=== PATIENT | female | born 2000 | race African-American/Black ===

== ENCOUNTER 2021-03-20 01:23 | Emergency (ER) | payer OTHER ==
--- NOTE | 2021-03-20 01:35 | ED Physician Documentation ---
PD HPI URI - Stated complaint Stated Complaint: FEMALE ,SWOLLEN NECK GLANDS - Chief complaint Chief Complaint: General - History obtained from History obtained from: Patient PD PAST MEDICAL HISTORY - Present Medications Home Medications: Ambulatory Orders Medication Instructions Recorded Confirmed Fluconazole [Diflucan] 150 mg PO Q3D 6 Days #2 tablet 03/20/21 Ibuprofen [Motrin] 600 mg PO TID PRN #20 tab 03/20/21 cephALEXin [Keflex] 500 mg PO TID 6 Days #18 cap 03/20/21 - Allergies Allergies/Adverse Reactions: Allergies Allergy/AdvReac Type Severity Reaction Status Date / Time No Known Drug Allergies Allergy Verified 03/20/21 01:29 PD ED PE NORMAL - Vitals Vital signs reviewed: Yes - General General: Alert and oriented X 3, No acute distress, Well developed/nourished - HEENT HEENT: Ears normal. No: Pharynx benign (left tonsils with some enlargement, faint exudate in crypts, with some peritonsillar redness/mild edema. No apparent abscess appearance. ) - Neck Neck: Supple, no meningeal sign, Other (left anterior cervical with enlarged lymph node that is tender. ) - Cardiac Cardiac: RRR - Respiratory Respiratory: Clear bilaterally - Female Female : Neck Skewer present, Other (redness of inner labial. Vault with thicker white discharge. No endocervical discharge. ) - Derm Derm: Normal color, Warm and dry, No rash Results - Vitals Vitals: Oxygen O2 Source Room air - Labs Labs: Microbiology 03/20/21 01:32 Group A Strep Throat Culture - Preliminary Throat CULTURE IN PROGRESS. RESULTS TO FOLLOW. Laboratory Tests 03/20/21 03/20/21 03/20/21 01:32 02:03 02:03 C. glabrata (PCR) NEGATIVE C. krusei (PCR) NEGATIVE Maribel species DNA POSITIVE A Chlam trachomat DNA PCR NEGATIVE N.gonorrhoeae DNA (PCR) NEGATIVE Group A Strep Rapid Negative T. vaginalis (PCR) NEGATIVE NEGATIVE Bact Vaginosis (PCR) NEGATIVE PD MEDICAL DECISION MAKING - ED course Complexity details: reviewed results, considered differential (vaginal exam c/w yeast vaginitis. Obtained PCR tests as well. Her tonsils seem some enlarged on left with some redness/mucosal swelling (but not appearing peritonsillar abscess extent) with neck adenopathy. Seems likely bacterial. ), d/w patient Departure - Departure Disposition: 01 Home, Self Care Clinical Impression: Yeast vaginitis Acute pharyngitis Qualifiers: Pharyngitis/tonsillitis etiology: unspecified etiology Qualified Code(s): J02.9 - Acute pharyngitis, unspecified Condition: Stable Record reviewed to determine appropriate education?: Yes Instructions: ED Strep Pharyngitis Poss, ED Vaginal Infec Fungal Maribel Follow-Up: KATHARINE VO ARNP [Primary Care Provider] - Prescriptions: Fluconazole [Diflucan] 150 mg PO Q3D 6 Days #2 tablet cephALEXin [Keflex] 500 mg PO TID 6 Days #18 cap Ibuprofen [Motrin] 600 mg PO TID PRN #20 tab PRN Reason: Pain Comments: Your rapid strep test is negative but your symptoms are certainly suspicious for strep pharyngitis. We can start treating empirically pending the throat culture which will result in a couple of days. If the culture were to come back negative, then the antibiotics could be stopped with presumption of a viral illness instead. The vaginal exam seems most consistent with yeast vaginitis and we can treat with Diflucan antifungal tablet the dose here today and then every 3 days for 2 more doses. That should allow for clearing of that. The vaginal PCR tests will result in a day or so and tell us if there is any bacterial vaginitis or S TI's. If those are positive then we would need to add antibiotics for those and we would give you a call. I would anticipate improvement over the next few days. Stay well-hydrated. Ibuprofen 3 times a day with food for pain and inflammation as needed. Add Tylenol if needed for further pain. Recheck if not improving well over the next several days. I transmitted your prescriptions to [facility] in [place]. Discharge Date/Time: 03/20/21 02:25
[2021-03-20] MEDS ORDERED: cephALEXin 250 MG CAPSULE PO STA (01:49)
[2021-03-20] MEDS ORDERED: ACETAMINOPHEN 325 MG TABLET PO STA (01:49)
[2021-03-20] MEDS ORDERED: IBUPROFEN 600 MG TABLET PO STA (01:49)
[2021-03-20 01:52] LABS: RAPID STREP SCREEN Negative (Negative)
[2021-03-20] MEDS ORDERED: FLUCONAZOLE 100 MG TABLET PO STA (02:08)
[2021-03-20 02:26] VITALS: BP 119/75
[2021-03-20 03:51] LABS: BACTERIAL VAGINOSIS DNA NEGATIVE (NEGATIVE); CANDIDA GLABRATA DNA NEGATIVE (NEGATIVE); CANDIDA GROUP DNA POSITIVE (NEGATIVE); CANDIDA KRUSEI DNA NEGATIVE (NEGATIVE); TRICHOMONAS VAGINALIS DNA NEGATIVE (NEGATIVE)
[2021-03-20 23:50] LABS: CHLAMYDIA TRACHOMATIS DNA NEGATIVE (NEGATIVE); NEISSERIA GONORRHOEAE DNA NEGATIVE (NEGATIVE); TRICHOMONAS VAGINALIS DNA NEGATIVE (NEGATIVE)
== END 2021-03-20 02:25 | disposition home or self-care (01) ==
LOC: ED 01:23
DX: B37.3 Candidiasis of vulva and vagina (principal); J02.9 Acute pharyngitis, unspecified
CPT/HCPCS: 87070; 87430; 87481; 87491; 87591; 87661; 87801; 99283; A9270

== ENCOUNTER 2021-06-19 08:00 | Outpatient (CLI) | payer OTHER ==
[2021-06-19 17:43] LABS: BILIRUBIN,URINE NEGATIVE (NEGATIVE); GLUCOSE, URINE (UA) NEGATIVE (NEGATIVE); KETONES,URINE (UA) NEGATIVE (NEGATIVE); LEUKOCYTE ESTERASE, URINE NEGATIVE (NEGATIVE); NITRITE,URINE NEGATIVE (NEGATIVE); OCCULT BLOOD,URINE NEGATIVE (NEGATIVE); PROTEIN,URINE NEGATIVE (NEGATIVE); UROBILINOGEN,URINE 0.2 (NORMAL) E.U./dL (NORMAL)
[2021-06-19 17:44] LABS: CLARITY,URINE CLEAR (CLEAR)
[2021-06-19 17:56] LABS: BACTERIA,URINE Rare /HPF (None Seen); RBC,URINE 0-5 /HPF (0-5); SQUAMOUS EPITHELIAL CELL,UR RARE Squamous (<= Few); WBC,URINE 0-3 /HPF (0-5)
== END 2021-06-19 23:59 ==
LOC: LAB.N 08:00
PROVIDERS: ATTEND Physician Assistant Medical
DX: U07.1 COVID-19 (principal)
CPT/HCPCS: 81001; 87086; 87275; 87276

== ENCOUNTER 2021-10-15 16:39 | Emergency (ER) | payer OTHER ==
--- OUTSIDE RECORDS SUMMARY | 2021-10-15 16:59 | EXTERNAL MEDICAL SUMMARY RPT | Continuity of Care Document ---
:2000 Author Organization [facility] Address [address] [place] [address] Phone Care Team Providers Name Role Phone PA-C Unavailable Unavailable Allergies No information. Encounters No information. Medications date description facility 20210819 erythromycin All Problems date description facility [id number] Superficial injury of cornea All 20210819 Injury of conjunctiva and corneal abrasi on without foreign All body, right eye, initial encounter 20210819 Corneal abrasion All Results No information. Vital Signs date measurement value source 20210819 weight_standard 183.2 lb 20210819 weight_metric 83.1 kg 20210819 temperature_standard 97.5 F 20210819 temperature_metric 36.39 C 20210819 respiration_rate 12 /min 20210819 height_standard 65 in 20210819 height_metric 165.1 cm 20210819 heart_rate 75 /min 20210819 BP_systolic 113 mm[Hg] 20210819 BP_diastolic 80 mm[Hg] 20210819 BMI 30.60 kg/m2
--- NOTE | 2021-10-15 17:49 | ED Physician Documentation ---
PD HPI ABD PAIN - Stated complaint Stated Complaint: ABD PX - Chief complaint Chief Complaint: Abd Pain - History obtained from History obtained from: Patient (21-year-old woman presents with pelvic pain that is severe x2 days. She thinks it is related to a 1 month old IUD. She denies bleeding or discharge. No urinary complaints.) Review of Systems Constitutional: denies: Fever, Chills Cardiac: denies: Chest pain / pressure Respiratory: denies: Dyspnea, Cough GI: denies: Nausea, Vomiting, Diarrhea PD PAST MEDICAL HISTORY - Past Medical History Past Medical History: No - Past Surgical History Past Surgical History: Yes HEENT: Tonsil/Adenoidectomy - Present Medications Home Medications: Ambulatory Orders Medication Instructions Recorded Confirmed Fluconazole [Diflucan] 150 mg PO Q3D 6 Days #2 tablet 03/20/21 Ibuprofen [Motrin] 600 mg PO TID PRN #20 tab 03/20/21 cephALEXin [Keflex] 500 mg PO TID 6 Days #18 cap 03/20/21 - Allergies Allergies/Adverse Reactions: Allergies Allergy/AdvReac Type Severity Reaction Status Date / Time No Known Drug Allergies Allergy Verified 10/15/21 16:47 - Social History Does the pt smoke?: No Smoking Status: Never smoker Does the pt drink ETOH?: Yes Does the pt have substance abuse?: No - Immunizations Immunizations are current?: Yes PD ED PE NORMAL - Vitals Vital signs reviewed: Yes - General General: Alert and oriented X 3, No acute distress - Abdomen Abdomen: Normal bowel sounds, Soft, Non tender - Female Female : Sign Builder present (Shelby TOMPKINS), Other (Appropriate placement of IUD strings, IUD removed with patient request. No bimanual tenderness.) - Neuro Neuro: Alert and oriented X 3, Normal speech Results - Vitals Vitals: Vital Signs - 24 hr 10/15/21 10/15/21 16:44 16:47 Temperature 36.4 C L 36.5 C Heart Rate 67 67 Respiratory 14 14 Rate Blood Pressure 132/75 H 132/75 H O2 Saturation 100 100 Oxygen O2 Source Room air - Labs Labs: Laboratory Tests 10/15/21 10/15/21 10/15/21 17:46 17:46 18:10 WBC 11.1 H RBC 3.93 L Hgb 11.9 L Hct 35.2 L MCV 89.6 MCH 30.3 MCHC 33.8 RDW 12.9 Plt Count 229 MPV 10.8 Neut # (Auto) 7.5 H Lymph # (Auto) 2.6 [place] # (Auto) 1.0 Eos # (Auto) 0.0 Baso # (Auto) 0.0 Absolute Nucleated RBC 0.00 Nucleated RBC % 0.0 Sodium 139 Potassium 3.6 Chloride 106 Carbon Dioxide 26 Anion Gap 7.0 BUN 12 Creatinine 0.7 Estimated GFR (MDRD) 126 Glucose 88 Calcium 8.9 Total Bilirubin 0.4 AST 22 ALT 20 Alkaline Phosphatase 31 L Total Protein 7.3 Albumin 3.7 Globulin 3.6 Albumin/Globulin Ratio 1.0 Lipase 25 Urine Color YELLOW Urine Clarity HAZY Urine pH 7.0 Ur Specific [place] 1.020 Urine Protein NEGATIVE Urine Glucose (UA) NEGATIVE Urine Ketones NEGATIVE Urine Occult Blood SMALL H Urine Nitrite NEGATIVE Urine Bilirubin NEGATIVE Urine Urobilinogen 0.2 (NORMAL) Ur Leukocyte Esterase NEGATIVE Urine RBC 6-10 H Urine WBC 0-3 Ur Squamous Epith Cells NONE SEEN Urine Bacteria None Seen Ur Microscopic Review INDICATED Urine Culture Comments NOT INDICATED Urine HCG, Qual 10/15/21 18:10 WBC RBC Hgb Hct MCV MCH MCHC RDW Plt Count MPV Neut # (Auto) Lymph # (Auto) [place] # (Auto) Eos # (Auto) Baso # (Auto) Absolute Nucleated RBC Nucleated RBC % Sodium Potassium Chloride Carbon Dioxide Anion Gap BUN Creatinine Estimated GFR (MDRD) Glucose Calcium Total Bilirubin AST ALT Alkaline Phosphatase Total Protein Albumin Globulin Albumin/Globulin Ratio Lipase Urine Color Urine Clarity Urine pH Ur Specific [place] Urine Protein Urine Glucose (UA) Urine Ketones Urine Occult Blood Urine Nitrite Urine Bilirubin Urine Urobilinogen Ur Leukocyte Esterase Urine RBC Urine WBC Ur Squamous Epith Cells Urine Bacteria Ur Microscopic Review Urine Culture Comments Urine HCG, Qual NEGATIVE PD MEDICAL DECISION MAKING - ED course ED course: 21-year-old woman presents with pelvic pain that she feels is related to her IUD. Alternative etiologies were not identified on testing. Per her request the IUD was removed in standard fashion with nurse Cherelle garcia at the bedside and chaperoning and she was pleased. Pelvic ultrasound was unremarkable with normal placement of the IUD. Departure - Departure Disposition: 01 Home, Self Care Clinical Impression: Pelvic pain in female Condition: Good Record reviewed to determine appropriate education?: Yes Instructions: ED Pelvic Pain UKO Comments: Your IUD was removed today, you will need to use alternative forms of control. Follow-up with your primary care or edi consultant, next available appointment. Return for new or worsening symptoms.
[2021-10-15 17:51] LABS: MEAN PLATELET VOLUME 10.8 fL (7.9-10.8); RED CELL DISTRIBUTION WIDTH 12.9 % (12.0-15.0)
[2021-10-15 17:54] LABS: BASOPHILS % (AUTO) 0.2 %; EOSINOPHILS % (AUTO) 0.3 %; HCT - HEMATOCRIT 35.2 % (37.0-47.0); HGB - HEMOGLOBIN 11.9 g/dL (12.0-16.0); LYMPHOCYTES # (AUTO) 2.6 10^3/uL (1.5-3.5); LYMPHOCYTES % (AUTO) 23.1 %; MEAN CORPUSCULAR HEMOGLOBIN 30.3 pg (27.0-31.0); MEAN CORPUSCULAR HGB CONC 33.8 g/dL (32.0-36.0); MEAN CORPUSCULAR VOLUME 89.6 fL (81.0-99.0); MONOCYTES % (AUTO) 8.6 %; NEUTROPHILS # (AUTO) 7.5 10^3/uL (1.5-6.6); NEUTROPHILS % (AUTO) 67.5 %; PLT - PLATELET COUNT 229 10^3/uL (130-450); RED BLOOD COUNT 3.93 10^6/uL (4.20-5.40); WHITE BLOOD COUNT 11.1 x10^3/uL (4.8-10.8)
[2021-10-15 18:03] LABS: ALBUMIN 3.7 g/dL (3.2-5.5); BILIRUBIN,TOTAL 0.4 mg/dL (0.2-1.0); CALCIUM 8.9 mg/dL (8.5-10.3); CREATININE 0.7 mg/dL (0.4-1.0); POTASSIUM 3.6 mmol/L (3.5-5.0); TOTAL PROTEIN 7.3 g/dL (6.7-8.2)
[2021-10-15 18:28] LABS: BILIRUBIN,URINE NEGATIVE (NEGATIVE); CLARITY,URINE HAZY (CLEAR); GLUCOSE, URINE (UA) NEGATIVE (NEGATIVE); KETONES,URINE (UA) NEGATIVE (NEGATIVE); LEUKOCYTE ESTERASE, URINE NEGATIVE (NEGATIVE); NITRITE,URINE NEGATIVE (NEGATIVE); OCCULT BLOOD,URINE SMALL (NEGATIVE); PROTEIN,URINE NEGATIVE (NEGATIVE); UROBILINOGEN,URINE 0.2 (NORMAL) E.U./dL (NORMAL)
[2021-10-15] MEDS: HYDROcod/ACETAM 5/325 MG TABLET PO STA (18:44)
[2021-10-15 18:46] LABS: BACTERIA,URINE None Seen /HPF (None Seen); SQUAMOUS EPITHELIAL CELL,UR NONE SEEN (<= Few); WBC,URINE 0-3 /HPF (0-5)
[2021-10-15 18:48] LABS: HCG UR QUAL NEGATIVE
--- NOTE | 2021-10-15 19:36 | Ultrasound Report ---
PROCEDURE: Pelvic w/Transvag+Doppler Comp INDICATIONS: pelvic pain TECHNIQUE: Real-time scanning was performed of the pelvic organs, with image documentation. Additional endovagi nal scanning was necessary due to incomplete visualization of the adnexal and endometrial structures by transabdominal scanning. Doppler interrogation was performed of the ovaries bilaterally. COMPARISON: None. FINDINGS: No pathologic free abdominal or pelvic fluid. Uterus: Uterus is normal in size at 7.4 x 3.1 x 4.5 cm cm. The endometrium measures 4.2 mm in combi zuleyma thickness. IUD is in good position. Ovaries: Both ovaries have a normal size. Normal appearing arterial and venous waveforms are confirm ed to each ovary.] IMPRESSION: 1. IUD is in good position. 2. No acute abnormality. Reviewed by: Tl Prince on 10/15/2021 7:35 PM PDT Approved by: Tl Prince on 10/15/2021 7:35 PM PDT Station ID: [id number]
[2021-10-15 19:53] VITALS: BP 128/72
== END 2021-10-15 19:51 | disposition home or self-care (01) ==
LOC: ED 16:39
DX: R10.2 Pelvic and perineal pain (principal); Z97.5 Presence of (intrauterine) contraceptive device
CPT/HCPCS: 36415; 76830; 76856; 80053; 81001; 81025; 83690; 85025; 93975; 99282; 99284; A9270; 81003; 87086

== ENCOUNTER 2021-12-21 20:24 | Emergency (ER) | payer OTHER ==
[2021-12-21 20:40] VITALS: BP 123/82
--- NOTE | 2021-12-21 21:35 | ED Physician Documentation ---
PD HPI LOWER EXT INJURY - Stated complaint Stated Complaint: R TOE INJ - Chief complaint Chief Complaint: Ext Problem - Additional information Additional information: Patient is 21-year-old female presenting to the emergency department with right great toe pain. Was doing reverse wall walks at the gym, flipped over backwards and landed on her toe in an awkward fashion. States that initially she was able to ambulate however pain got progressively worse approximately 90 minutes after the incident. Denies previous orthopedic injuries to the same foot. Review of Systems Ten Systems: 10 systems reviewed and negative Constitutional: denies: Fever Cardiac: denies: Chest pain / pressure Respiratory: denies: Dyspnea GI: denies: Abdominal Pain PD PAST MEDICAL HISTORY - Past Surgical History Past Surgical History: Yes HEENT: Tonsil/Adenoidectomy - Present Medications Home Medications: Ambulatory Orders Medication Instructions Recorded Confirmed Fluconazole [Diflucan] 150 mg PO Q3D 6 Days #2 tablet 03/20/21 Ibuprofen [Motrin] 600 mg PO TID PRN #20 tab 03/20/21 cephALEXin [Keflex] 500 mg PO TID 6 Days #18 cap 03/20/21 - Allergies Allergies/Adverse Reactions: Allergies Allergy/AdvReac Type Severity Reaction Status Date / Time No Known Drug Allergies Allergy Verified 12/21/21 20:40 - Social History Does the pt smoke?: No Smoking Status: Never smoker Does the pt drink ETOH?: Yes Does the pt have substance abuse?: No - Immunizations Immunizations are current?: Yes PD ED PE NORMAL - General General: Alert and oriented X 3 - HEENT HEENT: Atraumatic - Respiratory Respiratory: No respiratory distress - Female Female : Deferred - Rectal Rectal: Deferred - Extremities Extremities: Other (There is ecchymosis on the dorsal aspect of the right great toe. Normal sensation distal to site of injury. Normal capillary refill. There is no pain at the navicular bone, base of the fifth metatarsal or at either the lateral or medial malleoli.) Results - Vitals Vitals: Vital Signs - 24 hr 12/21/21 20:36 Temperature 36.5 C Heart Rate 75 Respiratory 14 Rate Blood Pressure 123/82 H O2 Saturation 100 Oxygen O2 Source Room air PD MEDICAL DECISION MAKING - ED course Complexity details: d/w patient ED course: Patient is 21-year-old female presenting to the emergency department with right great toe injury. X-rays negative for acute fracture. Neurovascularly intact. Will discharge with hard soled shoe, crutches. Given Motrin here in the emergency department and instructions for alternating Motrin and Tylenol at home. Encouraged ice packs and elevation as well. Encouraged follow-up with primary care and or return to the emergency department for persistent or worsening symptoms. Departure - Departure Clinical Impression: Toe sprain Instructions: ED Sprain Foot
[2021-12-21] MEDS ORDERED: IBUPROFEN 600 MG TABLET PO STA (21:39)
--- NOTE | 2021-12-21 21:50 | XRAY Report ---
PROCEDURE: Toe(s) RT INDICATIONS: Toe pain, s/p fall TECHNIQUE: AP view of the foot and 2 additional views of the great toe acquired. COMPARISON: 12/14/2021 FINDINGS: Bones: No fractures or dislocations. No suspicious bony lesions. Soft tissues: No suspicious soft tissue densities. IMPRESSION: 1. No fracture or dislocation. Reviewed by: Jorge A Stevens MD on 12/21/2021 9:48 PM PDT Approved by: Jorge A Stevens MD on 12/21/2021 9:48 PM PDT Station ID: [id number]
== END 2021-12-21 22:02 | disposition home or self-care (01) ==
LOC: ED 20:24
DX: S93.501A Unspecified sprain of right great toe, initial encounter (principal); X58.XXXA Exposure to other specified factors, initial encounter
CPT/HCPCS: 73660; 99282; 99283; A9270

== ENCOUNTER 2022-08-16 15:43 | Emergency (ER) | payer OTHER ==
--- NOTE | 2022-08-16 16:12 | ED Physician Documentation ---
PD HPI ABD PAIN - Stated complaint Stated Complaint: ABD PX/V/CONSTIPATED - Chief complaint Chief Complaint: Abd Pain - History obtained from History obtained from: Patient - Additional information Additional information: Otherwise healthy 22-year-old woman developed lower abdominal cramping starting 3 weeks ago. Its been episodic. It started while on her menses, was severe for about half an hour. She went to another ED and had urine testing done but no other testing. Subsequently followed up with her doctor and had urine and blood done which were reportedly unremarkable. She still has intermittent cramping. Its becoming more frequent. It is in the low abdomen radiating across to both sides. She had a menses on July 29 and subsequently also had some bleeding a few days ago. She attributed that to Depo-Provera withdrawal. Last actual activity was 2 weeks ago and she is not too concerned about STDs. She has not had a bowel movement in 5 days. She has had nausea and vomiting for the last 2 days. PD PAST MEDICAL HISTORY - Past Surgical History Past Surgical History: Yes HEENT: Tonsil/Adenoidectomy - Present Medications Home Medications: Ambulatory Orders Medication Instructions Recorded Confirmed Dextroamphetamine/Amphetamine 20 mg PO DAILY 08/16/22 08/16/22 [Adderall 20 mg Tablet] HYDROcod/ACETAM 5/325 [[place] 5/325] 1 - 2 tab PO Q6H PRN #15 tablet 08/16/22 Ondansetron Odt [Zofran] 4 mg TL Q6H PRN #10 tablet 08/16/22 - Allergies Allergies/Adverse Reactions: Allergies Allergy/AdvReac Type Severity Reaction Status Date / Time No Known Drug Allergies Allergy Verified 08/16/22 15:52 - Social History Does the pt smoke?: No Smoking Status: Never smoker Does the pt drink ETOH?: Yes Does the pt have substance abuse?: No - Immunizations Immunizations are current?: Yes PD ED PE NORMAL - Vitals Vital signs reviewed: Yes - General General: Alert and oriented X 3, No acute distress - Cardiac Cardiac: RRR, No murmur - Respiratory Respiratory: No respiratory distress, Clear bilaterally - Abdomen Abdomen: Normal bowel sounds, Soft, Non tender - Female Female : Other (Letitia, tech present and chaperoning, dark blood in the vault, mild bimanual tenderness centrally and to the right adnexa without cervical motion tenderness.) - Neuro Neuro: Alert and oriented X 3, Normal speech Results - Vitals Vitals: Vital Signs - 24 hr 08/16/22 08/16/22 15:47 17:52 Temperature 37.1 C Heart Rate 74 69 Respiratory 16 18 Rate Blood Pressure 123/94 H 109/83 H O2 Saturation 100 100 Oxygen O2 Source Room air - Labs Labs: Laboratory Tests 08/16/22 08/16/22 08/16/22 16:15 16:20 16:20 WBC 8.7 RBC 4.14 L Hgb 12.3 Hct 36.1 L MCV 87.2 MCH 29.7 MCHC 34.1 RDW 13.0 Plt Count 264 MPV 10.5 Neut # (Auto) 5.4 Lymph # (Auto) 2.5 [place] # (Auto) 0.8 Eos # (Auto) 0.0 Baso # (Auto) 0.0 Absolute Nucleated RBC 0.00 Nucleated RBC % 0.0 Sodium 134 L Potassium 3.5 Chloride 102 Carbon Dioxide 23 Anion Gap 9.0 BUN 10 Creatinine 0.7 Estimated GFR (MDRD) 125 Glucose 109 H Calcium 9.2 Total Bilirubin 0.5 AST 24 ALT 15 Alkaline Phosphatase 38 L Total Protein 7.9 Albumin 3.8 Globulin 4.1 Albumin/Globulin Ratio 0.9 L Lipase 28 Urine Color YELLOW Urine Clarity CLEAR Urine pH 6.0 Ur Specific [place] 1.020 Urine Protein NEGATIVE Urine Glucose (UA) NEGATIVE Urine Ketones NEGATIVE Urine Occult Blood SMALL H Urine Nitrite NEGATIVE Urine Bilirubin NEGATIVE Urine Urobilinogen 0.2 (NORMAL) Ur Leukocyte Esterase NEGATIVE Urine RBC 0-5 Urine WBC 0-3 Ur Squamous Epith Cells NONE SEEN Urine Bacteria None Seen Ur Microscopic Review INDICATED Urine Culture Comments NOT INDICATED Urine HCG, Qual NEGATIVE PD Medical Decision Making - ED course ED course: 22-year-old woman has been dealing with pelvic cramps and odd vaginal bleeding for the last few weeks. Stopped Depo-Provera about 5 months ago and that might be related but she has been on a control patch in the interim stopping about a week ago. CT of the abdomen pelvis was negative. CBC, CMP, urinalysis, and urine test all without pertinent positive findings. Feeling better after Toradol. Pelvic exam done With some central bimanual and right adnexal tenderness. Offered PID treatment but her exam was fairly benign for that and she preferred to watch and wait to see what her STD test show. Departure - Departure Disposition: Home, Self Care Clinical Impression: Abdominal pain Qualifiers: Abdominal location: lower abdomen, unspecified Qualified Code(s): R10.30 - Lower abdominal pain, unspecified Condition: Good Record reviewed to determine appropriate education?: Yes Instructions: ED Abdominal Pain Female Non-Specific Abdominal Pain Prescriptions: HYDROcod/ACETAM 5/325 [[place] 5/325] 1 - 2 tab PO Q6H PRN #15 tablet PRN Reason: Pain Ondansetron Odt [Zofran] 4 mg TL Q6H PRN #10 tablet PRN Reason: Nausea / Vomiting Comments: Cause of your abdominal and pelvic pain is not quite clear, may be related to stoppage of the Depo-Provera. STD tests are pending. I sent [facility] medication [facility] to [facility] in [place] for you that should help with the pain and cramps. Return for new or worsening symptoms and follow-up with your doctor next week, consideration for gynecology referral. The local civilian office is on this form but you probably will need a referral. I am prescribing a short course of narcotic pain medication for you. These are potentially dangerous and addictive medications that should be used carefully. These medications may constipate you. Take an [id number] stool softener (docusate) twice daily with plenty of water while taking these medications. If you go 24 hours without a bowel movement, take [id number] miralax, per package instructions. Do not drink or drive while taking these medications. If you received narcotic or sedating medications while in the emergency department, do not drive for 24 hours. Store this medication in a safe, secure place and out of reach of children. It is a violation of federal law to give or sell this medication to another person or to use in a manner other than prescribed. The ED will not refill narcotic prescriptions, including prescriptions lost or stolen. To dispose of unwanted medications: 1. [facility] at [address] in [place] has a medication drop box. They accept prescription medications (in pill form) Saturday through Saturday 9:00 a.m. to 5:00 p.m. 2. The [facility] accepts prescription medications (in pill form only) for disposal year round. Call for more information. 3. Contact the [facility] for the next [facility] sponsored prescription drug collection event. , [phone], or [phone]; Note that many narcotic pain relievers also contain Tylenol/acetaminophen. Please ensure that your total dose of acetaminophen from all sources does not exceed 3 g (3000 mg) per day. Forms: Activity restrictions
[2022-08-16 16:26] LABS: BASOPHILS % (AUTO) 0.1 %; EOSINOPHILS % (AUTO) 0.3 %; HCT - HEMATOCRIT 36.1 % (37.0-47.0); HGB - HEMOGLOBIN 12.3 g/dL (12.0-16.0); LYMPHOCYTES # (AUTO) 2.5 10^3/uL (1.5-3.5); LYMPHOCYTES % (AUTO) 28.5 %; MEAN CORPUSCULAR HEMOGLOBIN 29.7 pg (27.0-31.0); MEAN CORPUSCULAR HGB CONC 34.1 g/dL (32.0-36.0); MEAN CORPUSCULAR VOLUME 87.2 fL (81.0-99.0); MEAN PLATELET VOLUME 10.5 fL (7.9-10.8); MONOCYTES # (AUTO) 0.8 10^3/uL (0.0-1.0); MONOCYTES % (AUTO) 8.9 %; NEUTROPHILS # (AUTO) 5.4 10^3/uL (1.5-6.6); NEUTROPHILS % (AUTO) 62.1 %; PLT - PLATELET COUNT 264 10^3/uL (130-450); RED BLOOD COUNT 4.14 10^6/uL (4.20-5.40); WHITE BLOOD COUNT 8.7 x10^3/uL (4.8-10.8)
[2022-08-16 16:39] LABS: ALBUMIN 3.8 g/dL (3.2-5.5); ALBUMIN/GLOBULIN RATIO 0.9 (1.0-2.2); BILIRUBIN,TOTAL 0.5 mg/dL (0.2-1.0); CALCIUM 9.2 mg/dL (8.5-10.3); CREATININE 0.7 mg/dL (0.4-1.0); POTASSIUM 3.5 mmol/L (3.5-5.0); TOTAL PROTEIN 7.9 g/dL (6.7-8.2)
[2022-08-16 16:39] LABS: BILIRUBIN,URINE NEGATIVE (NEGATIVE); GLUCOSE, URINE (UA) NEGATIVE (NEGATIVE); KETONES,URINE (UA) NEGATIVE (NEGATIVE); LEUKOCYTE ESTERASE, URINE NEGATIVE (NEGATIVE); NITRITE,URINE NEGATIVE (NEGATIVE); OCCULT BLOOD,URINE SMALL (NEGATIVE); PROTEIN,URINE NEGATIVE (NEGATIVE); UROBILINOGEN,URINE 0.2 (NORMAL) E.U./dL (NORMAL)
[2022-08-16 16:42] LABS: CLARITY,URINE CLEAR (CLEAR); HCG UR QUAL NEGATIVE
[2022-08-16 16:51] LABS: BACTERIA,URINE None Seen /HPF (None Seen); RBC,URINE 0-5 /HPF (0-5); SQUAMOUS EPITHELIAL CELL,UR NONE SEEN (<= Few); WBC,URINE 0-3 /HPF (0-5)
[2022-08-16] MEDS ORDERED: iohexoL-300 100 ML VIAL ONE (16:55)
--- OUTSIDE RECORDS SUMMARY | 2022-08-16 17:25 | EXTERNAL MEDICAL SUMMARY RPT | Continuity of Care Document ---
:2000 Author Organization [facility] Address [address] [place] [address] Phone Care Team Providers Name Role Phone Xenia Wiggins Unavailable Unavailable Allergies and Intolerances date description facility type (no date) No Known Drug Allergies [facility] (unkn own) Encounters No information. Functional Status No information. Immunizations No information. Medications No information. Problems date description facility 2022-07-26 00:00 Abdominal pain [facility] Procedures No information. Results/Labs test date author facility value unit interpret ation Result panel 1 (unknown) (no (unknown) (unknown) (no value) (units (unk nown) date) unknown) (unknown) (no (unknown) (unknown) 07/26/22 (units (unkno wn) date) unknown) (unknown) (no (unknown) (unknown) 04:20 (units (unkno wn) date) unknown) (unknown) (no (unknown) (unknown) [id number] (units (unkno wn) date) unknown) (unknown) (no (unknown) (unknown) Age/Sex: 22 / F (units (unknown) date) unknown) (unknown) (no (unknown) (unknown) Allergies (units (unkn own) date) unknown) (unknown) (no (unknown) (unknown) Allergy/AdvReac (units (unknown) date) Type Severity unknown) Reaction Status Date / Time (unknown) (no (unknown) (unknown) Bedside Urine (units ( unknown) date) Bilirubin - unknown) Negative (unknown) (no (unknown) (unknown) Bedside Urine (units ( unknown) date) Glucose Negative unknown) (unknown) (no (unknown) (unknown) Bedside Urine (units ( unknown) date) Ketone - unknown) Negative (unknown) (no (unknown) (unknown) Bedside Urine (units ( unknown) date) Leukocytes - unknown) Negative (unknown) (no (unknown) (unknown) Bedside Urine (units ( unknown) date) Nitrite - unknown) Negative (unknown) (no (unknown) (unknown) Bedside Urine (units ( unknown) date) Occult Blood unknown) (unknown) (no (unknown) (unknown) Bedside Urine (units ( unknown) date) Protein - unknown) Negative (unknown) (no (unknown) (unknown) Bedside Urine (units ( unknown) date) Urobilinogen - unknown) Negative (unknown) (no (unknown) (unknown) Bedside Urine (units ( unknown) date) pH 6.0 unknown) (unknown) (no (unknown) (unknown) Blood Pressure (units (unknown) date) 121/77 07/26/22 unknown) 04:20 (unknown) (no (unknown) (unknown) Blood Pressure (units (unknown) date) unknown) (unknown) (no (unknown) (unknown) Chief (units (unkno wn) date) Complaint: unknown) Abdominal Pain (unknown) (no (unknown) (unknown) Course (units (unkno wn) date) unknown) (unknown) (no (unknown) (unknown) : 2000 (units (unknown) date) Acct:[id number] unknown) (unknown) (no (unknown) (unknown) Date of (units (unkno wn) date) Service: unknown) 07/26/22 (unknown) (no (unknown) (unknown) Departure (units (unkn own) date) unknown) (unknown) (no (unknown) (unknown) Discharge Plan (units (unknown) date) unknown) (unknown) (no (unknown) (unknown) ER Physician: (units ( unknown) date) Xenia Wiggins unknown) D.O. (unknown) (no (unknown) (unknown) Emergency (units (unkn own) date) Report unknown) (unknown) (no (unknown) (unknown) Esterase (units (unkno wn) date) unknown) (unknown) (no (unknown) (unknown) Exam (units (unkno wn) date) unknown) (unknown) (no (unknown) (unknown) General (units (unkno wn) date) unknown) (unknown) (no (unknown) (unknown) HPI - Abdominal (units (unknown) date) Pain unknown) (unknown) (no (unknown) (unknown) Initial Vital (units ( unknown) date) Signs unknown) (unknown) (no (unknown) (unknown) Initial Vital (units ( unknown) date) Signs: unknown) (unknown) (no (unknown) (unknown) [facility] (units (unknown) date) [address] unknown) [place] [address] (unknown) (no (unknown) (unknown) Lab Data (units (unkno wn) date) unknown) (unknown) (no (unknown) (unknown) MDM - Abdominal (units (unknown) date) Pain unknown) (unknown) (no (unknown) (unknown) Mode of (units (unkno wn) date) arrival: unknown) Ambulatory (unknown) (no (unknown) (unknown) No Known Drug (units ( unknown) date) Allergies unknown) Allergy Verified 07/26/22 04:35 (unknown) (no (unknown) (unknown) Oxygen Delivery (units (unknown) date) Method 07/26/22 unknown) 04:20 (unknown) (no (unknown) (unknown) Oxygen Delivery (units (unknown) date) Method Room Air unknown) (unknown) (no (unknown) (unknown) Patient History (units (unknown) date) unknown) (unknown) (no (unknown) (unknown) Patient: (units (unkno wn) date) Bianca Forrest unknown) MR#: [id number] (unknown) (no (unknown) (unknown) Point of Care (units ( unknown) date) Testing unknown) (unknown) (no (unknown) (unknown) Point of care (units ( unknown) date) testing: unknown) (unknown) (no (unknown) (unknown) Test (units (unknown) date) Results Negative unknown) (unknown) (no (unknown) (unknown) Provider,Gabo (units (unknown) date) y SHELLY [Primary unknown) Care Provider] (unknown) (no (unknown) (unknown) Pulse Oximetry (units (unknown) date) 100 07/26/22 unknown) 04:20 (unknown) (no (unknown) (unknown) Pulse Oximetry (units (unknown) date) 100 unknown) (unknown) (no (unknown) (unknown) Pulse Rate 68 (units ( unknown) date) 07/26/22 04:20 unknown) (unknown) (no (unknown) (unknown) Pulse Rate 68 (units ( unknown) date) unknown) (unknown) (no (unknown) (unknown) Referrals: (units (unk nown) date) unknown) (unknown) (no (unknown) (unknown) Related Data (units (u nknown) date) unknown) (unknown) (no (unknown) (unknown) Respiratory (units (un known) date) Rate 18 07/26/22 unknown) 04:20 (unknown) (no (unknown) (unknown) Respiratory (units (un known) date) Rate 18 unknown) (unknown) (no (unknown) (unknown) Signed By: (units (unk nown) date) unknown) (unknown) (no (unknown) (unknown) Smoking Status: (units (unknown) date) Never smoker unknown) (unknown) (no (unknown) (unknown) Social History (units (unknown) date) unknown) (unknown) (no (unknown) (unknown) Source: patient (units (unknown) date) unknown) (unknown) (no (unknown) (unknown) Stated (units (unkno wn) date) Complaint: ABD unknown) PAIN (unknown) (no (unknown) (unknown) Substance Use (units ( unknown) date) Type: does not unknown) use (unknown) (no (unknown) (unknown) Temperature (units (un known) date) 98.7 F 07/26/22 unknown) 04:20 (unknown) (no (unknown) (unknown) Temperature (units (un known) date) 98.7 F unknown) (unknown) (no (unknown) (unknown) Time Seen by (units (u nknown) date) Provider: unknown) 07/26/22 05:06 (unknown) (no (unknown) (unknown) Urine Dip (units (unkn own) date) unknown) (unknown) (no (unknown) (unknown) Urine Specific (units (unknown) date) [place] 1.020 unknown) (unknown) (no (unknown) (unknown) Vital Signs - 8 (units (unknown) date) hr unknown) (unknown) (no (unknown) (unknown) Vital Signs (units (un known) date) unknown) (unknown) (no (unknown) (unknown) Vital signs: (units (u nknown) date) unknown) (unknown) (no (unknown) (unknown) alcohol intake (units (unknown) date) frequency: a few unknown) times a month Result panel 2 (unknown) (no (unknown) (unknown) (no value) (units (unk nown) date) unknown) (unknown) (no (unknown) (unknown) 07/26/22 (units (unkno wn) date) unknown) (unknown) (no (unknown) (unknown) 04:20 (units (unkno wn) date) unknown) (unknown) (no (unknown) (unknown) [id number] (units (unkno wn) date) unknown) (unknown) (no (unknown) (unknown) Age/Sex: 22 / F (units (unknown) date) unknown) (unknown) (no (unknown) (unknown) Allergies (units (unkn own) date) unknown) (unknown) (no (unknown) (unknown) Allergy/AdvReac (units (unknown) date) Type Severity unknown) Reaction Status Date / Time (unknown) (no (unknown) (unknown) Bedside Urine (units ( unknown) date) Bilirubin - unknown) Negative (unknown) (no (unknown) (unknown) Bedside Urine (units ( unknown) date) Glucose Negative unknown) (unknown) (no (unknown) (unknown) Bedside Urine (units ( unknown) date) Ketone - unknown) Negative (unknown) (no (unknown) (unknown) Bedside Urine (units ( unknown) date) Leukocytes - unknown) Negative (unknown) (no (unknown) (unknown) Bedside Urine (units ( unknown) date) Nitrite - unknown) Negative (unknown) (no (unknown) (unknown) Bedside Urine (units ( unknown) date) Occult Blood unknown) (unknown) (no (unknown) (unknown) Bedside Urine (units ( unknown) date) Protein - unknown) Negative (unknown) (no (unknown) (unknown) Bedside Urine (units ( unknown) date) Urobilinogen - unknown) Negative (unknown) (no (unknown) (unknown) Bedside Urine (units ( unknown) date) pH 6.0 unknown) (unknown) (no (unknown) (unknown) Blood Pressure (units (unknown) date) 121/77 07/26/22 unknown) 04:20 (unknown) (no (unknown) (unknown) Blood Pressure (units (unknown) date) unknown) (unknown) (no (unknown) (unknown) Chief (units (unkno wn) date) Complaint: unknown) Abdominal Pain (unknown) (no (unknown) (unknown) Course (units (unkno wn) date) unknown) (unknown) (no (unknown) (unknown) : 2000 (units (unknown) date) Acct:[id number] unknown) (unknown) (no (unknown) (unknown) Date of (units (unkno wn) date) Service: unknown) 07/26/22 (unknown) (no (unknown) (unknown) Departure (units (unkn own) date) unknown) (unknown) (no (unknown) (unknown) Discharge Plan (units (unknown) date) unknown) (unknown) (no (unknown) (unknown) ER Physician: (units ( unknown) date) Xenia Wiggins unknown) D.O. (unknown) (no (unknown) (unknown) Emergency (units (unkn own) date) Report unknown) (unknown) (no (unknown) (unknown) Esterase (units (unkno wn) date) unknown) (unknown) (no (unknown) (unknown) Exam (units (unkno wn) date) unknown) (unknown) (no (unknown) (unknown) General (units (unkno wn) date) unknown) (unknown) (no (unknown) (unknown) HPI - Abdominal (units (unknown) date) Pain unknown) (unknown) (no (unknown) (unknown) HPI narrative: (units (unknown) date) unknown) (unknown) (no (unknown) (unknown) History of (units (unk nown) date) Present Illness unknown) (unknown) (no (unknown) (unknown) Initial Vital (units ( unknown) date) Signs unknown) (unknown) (no (unknown) (unknown) Initial Vital (units ( unknown) date) Signs: unknown) (unknown) (no (unknown) (unknown) [facility] (units (unknown) date) [address] unknown) [place] [address] (unknown) (no (unknown) (unknown) Lab Data (units (unkno wn) date) unknown) (unknown) (no (unknown) (unknown) MDM - Abdominal (units (unknown) date) Pain unknown) (unknown) (no (unknown) (unknown) Mode of (units (unkno wn) date) arrival: unknown) Ambulatory (unknown) (no (unknown) (unknown) No Known Drug (units ( unknown) date) Allergies unknown) Allergy Verified 07/26/22 04:35 (unknown) (no (unknown) (unknown) Oxygen Delivery (units (unknown) date) Method 07/26/22 unknown) 04:20 (unknown) (no (unknown) (unknown) Oxygen Delivery (units (unknown) date) Method Room Air unknown) (unknown) (no (unknown) (unknown) Patient History (units (unknown) date) unknown) (unknown) (no (unknown) (unknown) Patient is a (units (u nknown) date) healthy unknown) 22-year-old female who woke up at 2:45 a.m. within can (unknown) (no (unknown) (unknown) Patient: (units (unkno wn) date) Bianca Forrest unknown) MR#: [id number] (unknown) (no (unknown) (unknown) Point of Care (units ( unknown) date) Testing unknown) (unknown) (no (unknown) (unknown) Point of care (units ( unknown) date) testing: unknown) (unknown) (no (unknown) (unknown) Test (units (unknown) date) Results Negative unknown) (unknown) (no (unknown) (unknown) Provider,Gabo (units (unknown) date) y SHELLY [Primary unknown) Care Provider] (unknown) (no (unknown) (unknown) Pulse Oximetry (units (unknown) date) 100 07/26/22 unknown) 04:20 (unknown) (no (unknown) (unknown) Pulse Oximetry (units (unknown) date) 100 unknown) (unknown) (no (unknown) (unknown) Pulse Rate 68 (units ( unknown) date) 07/26/22 04:20 unknown) (unknown) (no (unknown) (unknown) Pulse Rate 68 (units ( unknown) date) unknown) (unknown) (no (unknown) (unknown) ROS (units (unkno wn) date) Unobtainable: unknown) All systems reviewed + are unremarkable except as noted in HPI (unknown) (no (unknown) (unknown) Referrals: (units (unk nown) date) unknown) (unknown) (no (unknown) (unknown) Related Data (units (u nknown) date) unknown) (unknown) (no (unknown) (unknown) Respiratory (units (un known) date) Rate 18 07/26/22 unknown) 04:20 (unknown) (no (unknown) (unknown) Respiratory (units (un known) date) Rate 18 unknown) (unknown) (no (unknown) (unknown) Review of (units (unkn own) date) Systems unknown) (unknown) (no (unknown) (unknown) Signed By: (units (unk nown) date) unknown) (unknown) (no (unknown) (unknown) Smoking Status: (units (unknown) date) Never smoker unknown) (unknown) (no (unknown) (unknown) Social History (units (unknown) date) (Reviewed unknown) 07/26/22 @ 05:19 by Xenia Wiggins DO) (unknown) (no (unknown) (unknown) Source: patient (units (unknown) date) unknown) (unknown) (no (unknown) (unknown) Stated (units (unkno wn) date) Complaint: ABD unknown) PAIN (unknown) (no (unknown) (unknown) Substance Use (units ( unknown) date) Type: does not unknown) use (unknown) (no (unknown) (unknown) Temperature (units (un known) date) 98.7 F 07/26/22 unknown) 04:20 (unknown) (no (unknown) (unknown) Temperature (units (un known) date) 98.7 F unknown) (unknown) (no (unknown) (unknown) Time Seen by (units (u nknown) date) Provider: unknown) 07/26/22 05:06 (unknown) (no (unknown) (unknown) Urine Dip (units (unkn own) date) unknown) (unknown) (no (unknown) (unknown) Urine Specific (units (unknown) date) [place] 1.020 unknown) (unknown) (no (unknown) (unknown) Vital Signs - 8 (units (unknown) date) hr unknown) (unknown) (no (unknown) (unknown) Vital Signs (units (un known) date) unknown) (unknown) (no (unknown) (unknown) Vital signs: (units (u nknown) date) unknown) (unknown) (no (unknown) (unknown) alcohol intake (units (unknown) date) frequency: a few unknown) times a month (unknown) (no (unknown) (unknown) and below (units (unkn own) date) unknown) (unknown) (no (unknown) (unknown) completely (units (unk nown) date) resolved now. unknown) (unknown) (no (unknown) (unknown) did not vomit. (units (unknown) date) He would a bowel unknown) movement. She had a normal day yesterday and (unknown) (no (unknown) (unknown) it lasted for (units ( unknown) date) 30 minutes. unknown) During the time she felt nauseous and short of. She (unknown) (no (unknown) (unknown) lower abdominal (units (unknown) date) pain all across unknown) her lower abdomen. She took 600 mg of ibuprofen (unknown) (no (unknown) (unknown) went to bed (units (un known) date) last night. No unknown) prior history of ovarian cyst. Her pain is Result panel 3 (unknown) (no (unknown) (unknown) (no value) (units (unk nown) date) unknown) (unknown) (no (unknown) (unknown) *Continue to (units (u nknown) date) take medications unknown) as directed (unknown) (no (unknown) (unknown) *Follow up with (units (unknown) date) your primary unknown) care provider in 2-3 days or call [phone] (unknown) (no (unknown) (unknown) *Return to ER (units ( unknown) date) if you should unknown) have increasing pain nausea vomiting or any new, (unknown) (no (unknown) (unknown) *What to do: At (units (unknown) date) this time unknown) abdominal pain that resolved within 30 minutes is (unknown) (no (unknown) (unknown) *You have been (units (unknown) date) diagnosed with unknown) abdominal pain (unknown) (no (unknown) (unknown) 07/26/22 (units (unkno wn) date) unknown) (unknown) (no (unknown) (unknown) 04:20 (units (unkno wn) date) unknown) (unknown) (no (unknown) (unknown) [id number] (units (unkno wn) date) unknown) (unknown) (no (unknown) (unknown) Abdominal pain (units (unknown) date) unknown) (unknown) (no (unknown) (unknown) Activity (units (unkno wn) date) Restrictions/Add unknown) itional Instructions: (unknown) (no (unknown) (unknown) Age/Sex: 22 / F (units (unknown) date) unknown) (unknown) (no (unknown) (unknown) Allergies (units (unkn own) date) unknown) (unknown) (no (unknown) (unknown) Allergy/AdvReac (units (unknown) date) Type Severity unknown) Reaction Status Date / Time (unknown) (no (unknown) (unknown) Bedside Urine (units ( unknown) date) Bilirubin - unknown) Negative (unknown) (no (unknown) (unknown) Bedside Urine (units ( unknown) date) Glucose Negative unknown) (unknown) (no (unknown) (unknown) Bedside Urine (units ( unknown) date) Ketone - unknown) Negative (unknown) (no (unknown) (unknown) Bedside Urine (units ( unknown) date) Leukocytes - unknown) Negative (unknown) (no (unknown) (unknown) Bedside Urine (units ( unknown) date) Nitrite - unknown) Negative (unknown) (no (unknown) (unknown) Bedside Urine (units ( unknown) date) Occult Blood unknown) (unknown) (no (unknown) (unknown) Bedside Urine (units ( unknown) date) Protein - unknown) Negative (unknown) (no (unknown) (unknown) Bedside Urine (units ( unknown) date) Urobilinogen - unknown) Negative (unknown) (no (unknown) (unknown) Bedside Urine (units ( unknown) date) pH 6.0 unknown) (unknown) (no (unknown) (unknown) Blood Pressure (units (unknown) date) 121/77 07/26/22 unknown) 04:20 (unknown) (no (unknown) (unknown) Blood Pressure (units (unknown) date) unknown) (unknown) (no (unknown) (unknown) Chief (units (unkno wn) date) Complaint: unknown) Abdominal Pain (unknown) (no (unknown) (unknown) Clinical (units (unkno wn) date) Impression: unknown) (unknown) (no (unknown) (unknown) Course (units (unkno wn) date) unknown) (unknown) (no (unknown) (unknown) : 2000 (units (unknown) date) Acct:[id number] unknown) (unknown) (no (unknown) (unknown) Date of (units (unkno wn) date) Service: unknown) 07/26/22 (unknown) (no (unknown) (unknown) Departure (units (unkn own) date) unknown) (unknown) (no (unknown) (unknown) Discharge Plan (units (unknown) date) unknown) (unknown) (no (unknown) (unknown) ER Physician: (units ( unknown) date) Xenia Wiggins unknown) D.O. (unknown) (no (unknown) (unknown) Emergency (units (unkn own) date) Report unknown) (unknown) (no (unknown) (unknown) Esterase (units (unkno wn) date) unknown) (unknown) (no (unknown) (unknown) Exam (units (unkno wn) date) unknown) (unknown) (no (unknown) (unknown) General (units (unkno wn) date) unknown) (unknown) (no (unknown) (unknown) HPI - Abdominal (units (unknown) date) Pain unknown) (unknown) (no (unknown) (unknown) HPI narrative: (units (unknown) date) unknown) (unknown) (no (unknown) (unknown) History of (units (unk nown) date) Present Illness unknown) (unknown) (no (unknown) (unknown) Initial Vital (units ( unknown) date) Signs unknown) (unknown) (no (unknown) (unknown) Initial Vital (units ( unknown) date) Signs: unknown) (unknown) (no (unknown) (unknown) Instructions: (units ( unknown) date) DI for Abdominal unknown) Pain-Adult (unknown) (no (unknown) (unknown) [facility] (units (unknown) date) [address] [place] [place] [address] [address] unknown) [place] [address] (unknown) (no (unknown) (unknown) Lab Data (units (unkno wn) date) unknown) (unknown) (no (unknown) (unknown) MDM - Abdominal (units (unknown) date) Pain unknown) (unknown) (no (unknown) (unknown) Mode of (units (unkno wn) date) arrival: unknown) Ambulatory (unknown) (no (unknown) (unknown) No Known Drug (units ( unknown) date) Allergies unknown) Allergy Verified 07/26/22 04:35 (unknown) (no (unknown) (unknown) Oxygen Delivery (units (unknown) date) Method 07/26/22 unknown) 04:20 (unknown) (no (unknown) (unknown) Oxygen Delivery (units (unknown) date) Method Room Air unknown) (unknown) (no (unknown) (unknown) Patient (units (unkno wn) date) Disposition: unknown) Home (unknown) (no (unknown) (unknown) Patient History (units (unknown) date) unknown) (unknown) (no (unknown) (unknown) Patient is a (units (u nknown) date) healthy unknown) 22-year-old female who woke up at 2:45 a.m. within can (unknown) (no (unknown) (unknown) Patient: (units (unkno wn) date) Bianca Forrest unknown) MR#: [id number] (unknown) (no (unknown) (unknown) Point of Care (units ( unknown) date) Testing unknown) (unknown) (no (unknown) (unknown) Point of care (units ( unknown) date) testing: unknown) (unknown) (no (unknown) (unknown) Test (units (unknown) date) Results Negative unknown) (unknown) (no (unknown) (unknown) Provider,[place] (units (unknown) date) y SHELLY [Primary unknown) Care Provider] (unknown) (no (unknown) (unknown) Pulse Oximetry (units (unknown) date) 100 07/26/22 unknown) 04:20 (unknown) (no (unknown) (unknown) Pulse Oximetry (units (unknown) date) 100 unknown) (unknown) (no (unknown) (unknown) Pulse Rate 68 (units ( unknown) date) 07/26/22 04:20 unknown) (unknown) (no (unknown) (unknown) Pulse Rate 68 (units ( unknown) date) unknown) (unknown) (no (unknown) (unknown) ROS (units (unkno wn) date) Unobtainable: unknown) All systems reviewed + are unremarkable except as noted in HPI (unknown) (no (unknown) (unknown) Referrals: (units (unk nown) date) unknown) (unknown) (no (unknown) (unknown) Related Data (units (u nknown) date) unknown) (unknown) (no (unknown) (unknown) Respiratory (units (un known) date) Rate 18 07/26/22 unknown) 04:20 (unknown) (no (unknown) (unknown) Respiratory (units (un known) date) Rate 18 unknown) (unknown) (no (unknown) (unknown) Review of (units (unkn own) date) Systems unknown) (unknown) (no (unknown) (unknown) Signed By: (units (unk nown) date) unknown) (unknown) (no (unknown) (unknown) Smoking Status: (units (unknown) date) Never smoker unknown) (unknown) (no (unknown) (unknown) Social History (units (unknown) date) (Reviewed unknown) 07/26/22 @ 05:19 by Xenia Wiggins DO) (unknown) (no (unknown) (unknown) Source: patient (units (unknown) date) unknown) (unknown) (no (unknown) (unknown) Stand Alone (units (un known) date) Forms: Patient unknown) Portal/API (unknown) (no (unknown) (unknown) Stated (units (unkno wn) date) Complaint: ABD unknown) PAIN (unknown) (no (unknown) (unknown) Substance Use (units ( unknown) date) Type: does not unknown) use (unknown) (no (unknown) (unknown) Temperature (units (un known) date) 98.7 F 07/26/22 unknown) 04:20 (unknown) (no (unknown) (unknown) Temperature (units (un known) date) 98.7 F unknown) (unknown) (no (unknown) (unknown) Time Seen by (units (u nknown) date) Provider: unknown) 07/26/22 05:06 (unknown) (no (unknown) (unknown) Urine Dip (units (unkn own) date) unknown) (unknown) (no (unknown) (unknown) Urine Specific (units (unknown) date) [place] 1.020 unknown) (unknown) (no (unknown) (unknown) Vital Signs - 8 (units (unknown) date) hr unknown) (unknown) (no (unknown) (unknown) Vital Signs (units (un known) date) unknown) (unknown) (no (unknown) (unknown) Vital signs: (units (u nknown) date) unknown) (unknown) (no (unknown) (unknown) abdominal pain (units (unknown) date) then please unknown) return to the emergency department (unknown) (no (unknown) (unknown) alcohol intake (units (unknown) date) frequency: a few unknown) times a month (unknown) (no (unknown) (unknown) and below (units (unkn own) date) unknown) (unknown) (no (unknown) (unknown) completely (units (unk nown) date) resolved now. unknown) (unknown) (no (unknown) (unknown) did not vomit. (units (unknown) date) He would a bowel unknown) movement. She had a normal day yesterday and (unknown) (no (unknown) (unknown) it lasted for (units ( unknown) date) 30 minutes. unknown) During the time she felt nauseous and short of. She (unknown) (no (unknown) (unknown) lower abdominal (units (unknown) date) pain all across unknown) her lower abdomen. She took 600 mg of ibuprofen (unknown) (no (unknown) (unknown) overall (units (unkno wn) date) reassuring. unknown) However if you should have new worsening or persistent (unknown) (no (unknown) (unknown) went to bed (units (un known) date) last night. No unknown) prior history of ovarian cyst. Her pain is (unknown) (no (unknown) (unknown) worsening or (units (u nknown) date) concerning unknown) symptoms Result panel 4 (unknown) (no (unknown) (unknown) (no value) (units (unk nown) date) unknown) (unknown) (no (unknown) (unknown) *Continue to take (units (unknown) date) medications as unknown) directed (unknown) (no (unknown) (unknown) *Follow up with (units (unknown) date) your primary care unknown) provider in 2-3 days or call [phone] (unknown) (no (unknown) (unknown) *Return to ER if (units (unknown) date) you should have unknown) increasing pain nausea vomiting or any new, (unknown) (no (unknown) (unknown) *What to do: At (units (unknown) date) this time unknown) abdominal pain that resolved within 30 minutes is (unknown) (no (unknown) (unknown) *You have been (units (unknown) date) diagnosed with unknown) abdominal pain (unknown) (no (unknown) (unknown) 02/02/23 (units (unkno wn) date) unknown) (unknown) (no (unknown) (unknown) 04:20 (units (unkno wn) date) unknown) (unknown) (no (unknown) (unknown) [id number] (units (unkno wn) date) unknown) (unknown) (no (unknown) (unknown) ABDOMEN: Soft, (units (unknown) date) nontender. unknown) Normoactive bowel sounds all 4 quadrants. No (unknown) (no (unknown) (unknown) Abdominal pain (units (unknown) date) unknown) (unknown) (no (unknown) (unknown) Activity (units (unkno wn) date) Restrictions/Addit unknown) ional Instructions: (unknown) (no (unknown) (unknown) Age/Sex: 22 / F (units (unknown) date) unknown) (unknown) (no (unknown) (unknown) Allergies (units (unkn own) date) unknown) (unknown) (no (unknown) (unknown) Allergy/AdvReac (units (unknown) date) Type Severity unknown) Reaction Status Date / Time (unknown) (no (unknown) (unknown) Bedside Urine (units ( unknown) date) Bilirubin - unknown) Negative (unknown) (no (unknown) (unknown) Bedside Urine (units ( unknown) date) Glucose Negative unknown) (unknown) (no (unknown) (unknown) Bedside Urine (units ( unknown) date) Ketone - Negative unknown) (unknown) (no (unknown) (unknown) Bedside Urine (units ( unknown) date) Leukocytes - unknown) Negative (unknown) (no (unknown) (unknown) Bedside Urine (units ( unknown) date) Nitrite - Negative unknown) (unknown) (no (unknown) (unknown) Bedside Urine (units ( unknown) date) Occult Blood unknown) (unknown) (no (unknown) (unknown) Bedside Urine (units ( unknown) date) Protein - Negative unknown) (unknown) (no (unknown) (unknown) Bedside Urine (units ( unknown) date) Urobilinogen - unknown) Negative (unknown) (no (unknown) (unknown) Bedside Urine pH (units (unknown) date) 6.0 unknown) (unknown) (no (unknown) (unknown) Blood Pressure (units (unknown) date) 121/77 07/26/22 unknown) 04:20 (unknown) (no (unknown) (unknown) Blood Pressure (units (unknown) date) 121/77 unknown) (unknown) (no (unknown) (unknown) CARDIOVASCULAR: (units (unknown) date) Regular rate and unknown) rhythm without murmurs, rubs or gallops. (unknown) (no (unknown) (unknown) Chief Complaint: (units (unknown) date) Abdominal Pain unknown) (unknown) (no (unknown) (unknown) Clinical (units (unkno wn) date) Impression: unknown) (unknown) (no (unknown) (unknown) Course (units (unkno wn) date) unknown) (unknown) (no (unknown) (unknown) : 2000 (units (unknown) date) Acct:[id number] unknown) (unknown) (no (unknown) (unknown) Date of Service: (units (unknown) date) 07/26/22 unknown) (unknown) (no (unknown) (unknown) Departure (units (unkn own) date) unknown) (unknown) (no (unknown) (unknown) Discharge Plan (units (unknown) date) unknown) (unknown) (no (unknown) (unknown) ER Physician: (units ( unknown) date) Xenia Wiggins unknown) D.O. (unknown) (no (unknown) (unknown) EXTREMITIES: (units (u nknown) date) Normal range of unknown) motion, no clubbing or edema. Neurovascularly (unknown) (no (unknown) (unknown) Emergency Report (units (unknown) date) unknown) (unknown) (no (unknown) (unknown) Esterase (units (unkno wn) date) unknown) (unknown) (no (unknown) (unknown) Exam (units (unkno wn) date) unknown) (unknown) (no (unknown) (unknown) GENERAL: Alert (units (unknown) date) well-appearing unknown) 22-year-old female and in no acute distress. (unknown) (no (unknown) (unknown) General (units (unkno wn) date) unknown) (unknown) (no (unknown) (unknown) HEENT: Head (units (un known) date) atraumatic,EOMI, unknown) pupils reactive, face symmetric, moist mucous (unknown) (no (unknown) (unknown) HPI - Abdominal (units (unknown) date) Pain unknown) (unknown) (no (unknown) (unknown) HPI narrative: (units (unknown) date) unknown) (unknown) (no (unknown) (unknown) History of (units (unk nown) date) Present Illness unknown) (unknown) (no (unknown) (unknown) Initial Vital (units ( unknown) date) Signs unknown) (unknown) (no (unknown) (unknown) Initial Vital (units ( unknown) date) Signs: unknown) (unknown) (no (unknown) (unknown) Instructions: DI (units (unknown) date) for Abdominal unknown) Pain-Adult (unknown) (no (unknown) (unknown) [facility] (units (unknown) date) [address]) [place] [address] (unknown) (no (unknown) (unknown) Lab Data (units (unkno wn) date) unknown) (unknown) (no (unknown) (unknown) MDM - Abdominal (units (unknown) date) Pain unknown) (unknown) (no (unknown) (unknown) MDM Narrative (units ( unknown) date) unknown) (unknown) (no (unknown) (unknown) Medical decision (units (unknown) date) making narrative: unknown) (unknown) (no (unknown) (unknown) Mode of arrival: (units (unknown) date) Ambulatory unknown) (unknown) (no (unknown) (unknown) NEUROLOGICAL: (units ( unknown) date) Alert and oriented unknown) x4. (unknown) (no (unknown) (unknown) No Known Drug (units ( unknown) date) Allergies Allergy unknown) Verified 07/26/22 04:35 (unknown) (no (unknown) (unknown) Oxygen Delivery (units (unknown) date) Method 07/26/22 unknown) 04:20 (unknown) (no (unknown) (unknown) Oxygen Delivery (units (unknown) date) Method Room Air unknown) (unknown) (no (unknown) (unknown) Patient (units (unkno wn) date) Disposition: Home unknown) (unknown) (no (unknown) (unknown) Patient History (units (unknown) date) unknown) (unknown) (no (unknown) (unknown) Patient is a (units (u nknown) date) healthy unknown) 22-year-old female who woke up at 2:45 a.m. within can (unknown) (no (unknown) (unknown) Patient is a (units (u nknown) date) healthy unknown) well-appearing 22-year-old female presenting today with (unknown) (no (unknown) (unknown) Patient: (units (unkno wn) date) Bianca Forrest MR#: unknown) [id number] (unknown) (no (unknown) (unknown) Point of Care (units ( unknown) date) Testing unknown) (unknown) (no (unknown) (unknown) Point of care (units ( unknown) date) testing: unknown) (unknown) (no (unknown) (unknown) Test (units (unknown) date) Results Negative unknown) (unknown) (no (unknown) (unknown) Provider,Marci (units (unknown) date) SHELLY [Primary Care unknown) Provider] (unknown) (no (unknown) (unknown) Pulse Oximetry (units (unknown) date) 100 07/26/22 04:20 unknown) (unknown) (no (unknown) (unknown) Pulse Oximetry (units (unknown) date) 100 unknown) (unknown) (no (unknown) (unknown) Pulse Rate 68 (units ( unknown) date) 07/26/22 04:20 unknown) (unknown) (no (unknown) (unknown) Pulse Rate 68 (units ( unknown) date) unknown) (unknown) (no (unknown) (unknown) RESPIRATORY: (units (u nknown) date) Breath sounds unknown) equal bilaterally, no wheezes rales or rhonchi. (unknown) (no (unknown) (unknown) ROS Unobtainable: (units (unknown) date) All systems unknown) reviewed + are unremarkable except as noted in HPI (unknown) (no (unknown) (unknown) Referrals: (units (unk nown) date) unknown) (unknown) (no (unknown) (unknown) Related Data (units (u nknown) date) unknown) (unknown) (no (unknown) (unknown) Respiratory Rate (units (unknown) date) 18 07/26/22 04:20 unknown) (unknown) (no (unknown) (unknown) Respiratory Rate (units (unknown) date) 18 unknown) (unknown) (no (unknown) (unknown) Review of Systems (units (unknown) date) unknown) (unknown) (no (unknown) (unknown) SKIN: Warm, dry, (units (unknown) date) no laceration, no unknown) petechiae, no rashes or lesions. (unknown) (no (unknown) (unknown) She is no (units (unkn own) date) recurrence of unknown) pain. She was previously within normal limits. (unknown) (no (unknown) (unknown) Signed By: (units (unk nown) date) unknown) (unknown) (no (unknown) (unknown) Smoking Status: (units (unknown) date) Never smoker unknown) (unknown) (no (unknown) (unknown) Social History (units (unknown) date) (Reviewed 07/26/22 unknown) @ 05:19 by Xenia Wiggins DO) (unknown) (no (unknown) (unknown) Source: patient (units (unknown) date) unknown) (unknown) (no (unknown) (unknown) Stand Alone (units (un known) date) Forms: Patient unknown) Portal/API, Work Release Note (unknown) (no (unknown) (unknown) Stated Complaint: (units (unknown) date) ABD PAIN unknown) (unknown) (no (unknown) (unknown) Substance Use (units ( unknown) date) Type: does not use unknown) (unknown) (no (unknown) (unknown) Temperature 98.7 (units (unknown) date) F 07/26/22 04:20 unknown) (unknown) (no (unknown) (unknown) Temperature 98.7 (units (unknown) date) F unknown) (unknown) (no (unknown) (unknown) Time Seen by (units (u nknown) date) Provider: 07/26/22 unknown) 05:06 (unknown) (no (unknown) (unknown) Urinalysis and (units (unknown) date) are unknown) negative. Differential diagnosis includes ovarian (unknown) (no (unknown) (unknown) Urine Dip (units (unkn own) date) unknown) (unknown) (no (unknown) (unknown) Urine Specific (units (unknown) date) [place] 1.020 unknown) (unknown) (no (unknown) (unknown) Vital Signs - 8 (units (unknown) date) hr unknown) (unknown) (no (unknown) (unknown) Vital Signs (units (un known) date) unknown) (unknown) (no (unknown) (unknown) Vital signs: (units (u nknown) date) unknown) (unknown) (no (unknown) (unknown) abdominal pain (units (unknown) date) then please return unknown) to the emergency department (unknown) (no (unknown) (unknown) alcohol intake (units (unknown) date) frequency: a few unknown) times a month (unknown) (no (unknown) (unknown) and below (units (unkn own) date) unknown) (unknown) (no (unknown) (unknown) any chest pain no (units (unknown) date) cough no rash no unknown) other symptoms. (unknown) (no (unknown) (unknown) cyst rupture, (units ( unknown) date) ectopic , unknown) appendicitis. However I think all of these are (unknown) (no (unknown) (unknown) did not vomit. (units (unknown) date) She had a normal unknown) day yesterday and went to bed last night. No (unknown) (no (unknown) (unknown) guarding or (units (un known) date) rebound. unknown) (unknown) (no (unknown) (unknown) imaging needed. (units (unknown) date) unknown) (unknown) (no (unknown) (unknown) intact (units (unkno wn) date) unknown) (unknown) (no (unknown) (unknown) it lasted for 30 (units (unknown) date) minutes. During unknown) the time she felt nauseous and short of. She (unknown) (no (unknown) (unknown) lower abdominal (units (unknown) date) pain all across unknown) her lower abdomen. She took 600 mg of ibuprofen (unknown) (no (unknown) (unknown) membranes (units (unkn own) date) unknown) (unknown) (no (unknown) (unknown) overall (units (unkno wn) date) reassuring. unknown) However if you should have new worsening or persistent (unknown) (no (unknown) (unknown) patient and (units (un known) date) partner. At this unknown) time I feel that there is no further testing or (unknown) (no (unknown) (unknown) prior history of (units (unknown) date) ovarian cyst. Her unknown) pain is completely resolved now. She denies (unknown) (no (unknown) (unknown) relatively (units (unk nown) date) unlikely with how unknown) quickly symptoms resolved. I discussed this with (unknown) (no (unknown) (unknown) sudden onset of (units (unknown) date) severe abdominal unknown) pain lasting 30 minutes resolving with Motrin. (unknown) (no (unknown) (unknown) worsening or (units (u nknown) date) concerning unknown) symptoms Result panel 5 (unknown) (no (unknown) (unknown) (no value) (units (unk nown) date) unknown) (unknown) (no (unknown) (unknown) *Continue to take (units (unknown) date) medications as unknown) directed (unknown) (no (unknown) (unknown) *Follow up with (units (unknown) date) your primary care unknown) provider in 2-3 days or call [phone] (unknown) (no (unknown) (unknown) *Return to ER if (units (unknown) date) you should have unknown) increasing pain nausea vomiting or any new, (unknown) (no (unknown) (unknown) *What to do: At (units (unknown) date) this time unknown) abdominal pain that resolved within 30 minutes is (unknown) (no (unknown) (unknown) *You have been (units (unknown) date) diagnosed with unknown) abdominal pain (unknown) (no (unknown) (unknown) 07/26/22 (units (unkno wn) date) unknown) (unknown) (no (unknown) (unknown) 04:20 (units (unkno wn) date) unknown) (unknown) (no (unknown) (unknown) [id number] (units (unkno wn) date) unknown) (unknown) (no (unknown) (unknown) ABDOMEN: Soft, (units (unknown) date) nontender. unknown) Normoactive bowel sounds all 4 quadrants. No (unknown) (no (unknown) (unknown) Abdominal pain (units (unknown) date) unknown) (unknown) (no (unknown) (unknown) Activity (units (unkno wn) date) Restrictions/Addit unknown) ional Instructions: (unknown) (no (unknown) (unknown) Age/Sex: 22 / F (units (unknown) date) unknown) (unknown) (no (unknown) (unknown) Allergies (units (unkn own) date) unknown) (unknown) (no (unknown) (unknown) Allergy/AdvReac (units (unknown) date) Type Severity unknown) Reaction Status Date / Time (unknown) (no (unknown) (unknown) Bedside Urine (units ( unknown) date) Bilirubin - unknown) Negative (unknown) (no (unknown) (unknown) Bedside Urine (units ( unknown) date) Glucose Negative unknown) (unknown) (no (unknown) (unknown) Bedside Urine (units ( unknown) date) Ketone - Negative unknown) (unknown) (no (unknown) (unknown) Bedside Urine (units ( unknown) date) Leukocytes - unknown) Negative (unknown) (no (unknown) (unknown) Bedside Urine (units ( unknown) date) Nitrite - Negative unknown) (unknown) (no (unknown) (unknown) Bedside Urine (units ( unknown) date) Occult Blood unknown) (unknown) (no (unknown) (unknown) Bedside Urine (units ( unknown) date) Protein - Negative unknown) (unknown) (no (unknown) (unknown) Bedside Urine (units ( unknown) date) Urobilinogen - unknown) Negative (unknown) (no (unknown) (unknown) Bedside Urine pH (units (unknown) date) 6.0 unknown) (unknown) (no (unknown) (unknown) Blood Pressure (units (unknown) date) 121/77 07/26/22 unknown) 04:20 (unknown) (no (unknown) (unknown) Blood Pressure (units (unknown) date) unknown) (unknown) (no (unknown) (unknown) CARDIOVASCULAR: (units (unknown) date) Regular rate and unknown) rhythm without murmurs, rubs or gallops. (unknown) (no (unknown) (unknown) Chief Complaint: (units (unknown) date) Abdominal Pain unknown) (unknown) (no (unknown) (unknown) Clinical (units (unkno wn) date) Impression: unknown) (unknown) (no (unknown) (unknown) Course (units (unkno wn) date) unknown) (unknown) (no (unknown) (unknown) : 2000 (units (unknown) date) Acct:[id number] unknown) (unknown) (no (unknown) (unknown) Date of Service: (units (unknown) date) 07/26/22 unknown) (unknown) (no (unknown) (unknown) Departure (units (unkn own) date) unknown) (unknown) (no (unknown) (unknown) Discharge Plan (units (unknown) date) unknown) (unknown) (no (unknown) (unknown) ER Physician: (units ( unknown) date) Xenia Wiggins unknown) D.O. (unknown) (no (unknown) (unknown) EXTREMITIES: (units (u nknown) date) Normal range of unknown) motion, no clubbing or edema. Neurovascularly (unknown) (no (unknown) (unknown) Emergency Report (units (unknown) date) unknown) (unknown) (no (unknown) (unknown) Esterase (units (unkno wn) date) unknown) (unknown) (no (unknown) (unknown) Exam (units (unkno wn) date) unknown) (unknown) (no (unknown) (unknown) GENERAL: Alert (units (unknown) date) well-appearing unknown) 22-year-old female and in no acute distress. (unknown) (no (unknown) (unknown) General (units (unkno wn) date) unknown) (unknown) (no (unknown) (unknown) HEENT: Head (units (un known) date) atraumatic,EOMI, unknown) pupils reactive, face symmetric, moist mucous (unknown) (no (unknown) (unknown) HPI - Abdominal (units (unknown) date) Pain unknown) (unknown) (no (unknown) (unknown) HPI narrative: (units (unknown) date) unknown) (unknown) (no (unknown) (unknown) History of (units (unk nown) date) Present Illness unknown) (unknown) (no (unknown) (unknown) Initial Vital (units ( unknown) date) Signs unknown) (unknown) (no (unknown) (unknown) Initial Vital (units ( unknown) date) Signs: unknown) (unknown) (no (unknown) (unknown) Instructions: DI (units (unknown) date) for Abdominal unknown) Pain-Adult (unknown) (no (unknown) (unknown) [facility] (units (unknown) date) [address] unknown) [place] [address] (unknown) (no (unknown) (unknown) Lab Data (units (unkno wn) date) unknown) (unknown) (no (unknown) (unknown) MDM - Abdominal (units (unknown) date) Pain unknown) (unknown) (no (unknown) (unknown) MDM Narrative (units ( unknown) date) unknown) (unknown) (no (unknown) (unknown) Medical decision (units (unknown) date) making narrative: unknown) (unknown) (no (unknown) (unknown) Mode of arrival: (units (unknown) date) Ambulatory unknown) (unknown) (no (unknown) (unknown) NEUROLOGICAL: (units ( unknown) date) Alert and oriented unknown) x4. (unknown) (no (unknown) (unknown) No Known Drug (units ( unknown) date) Allergies Allergy unknown) Verified 07/26/22 04:35 (unknown) (no (unknown) (unknown) Oxygen Delivery (units (unknown) date) Method 07/26/22 unknown) 04:20 (unknown) (no (unknown) (unknown) Oxygen Delivery (units (unknown) date) Method Room Air unknown) (unknown) (no (unknown) (unknown) Patient (units (unkno wn) date) Disposition: Home unknown) (unknown) (no (unknown) (unknown) Patient History (units (unknown) date) unknown) (unknown) (no (unknown) (unknown) Patient is a (units (u nknown) date) healthy unknown) 22-year-old female who woke up at 2:45 a.m. within can (unknown) (no (unknown) (unknown) Patient is a (units (u nknown) date) healthy unknown) well-appearing 22-year-old female presenting today with (unknown) (no (unknown) (unknown) Patient: (units (unkno wn) date) Bianca Forrest MR#: unknown) [id number] (unknown) (no (unknown) (unknown) Point of Care (units ( unknown) date) Testing unknown) (unknown) (no (unknown) (unknown) Point of care (units ( unknown) date) testing: unknown) (unknown) (no (unknown) (unknown) Test (units (unknown) date) Results Negative unknown) (unknown) (no (unknown) (unknown) Provider,Marci (units (unknown) date) SHELLY [Primary Care unknown) Provider] (unknown) (no (unknown) (unknown) Pulse Oximetry (units (unknown) date) 100 07/26/22 04:20 unknown) (unknown) (no (unknown) (unknown) Pulse Oximetry (units (unknown) date) 100 unknown) (unknown) (no (unknown) (unknown) Pulse Rate 68 (units ( unknown) date) 07/26/22 04:20 unknown) (unknown) (no (unknown) (unknown) Pulse Rate 68 (units ( unknown) date) unknown) (unknown) (no (unknown) (unknown) RESPIRATORY: (units (u nknown) date) Breath sounds unknown) equal bilaterally, no wheezes rales or rhonchi. (unknown) (no (unknown) (unknown) ROS Unobtainable: (units (unknown) date) All systems unknown) reviewed + are unremarkable except as noted in HPI (unknown) (no (unknown) (unknown) Referrals: (units (unk nown) date) unknown) (unknown) (no (unknown) (unknown) Related Data (units (u nknown) date) unknown) (unknown) (no (unknown) (unknown) Respiratory Rate (units (unknown) date) 18 07/26/22 04:20 unknown) (unknown) (no (unknown) (unknown) Respiratory Rate (units (unknown) date) 18 unknown) (unknown) (no (unknown) (unknown) Review of Systems (units (unknown) date) unknown) (unknown) (no (unknown) (unknown) SKIN: Warm, dry, (units (unknown) date) no laceration, no unknown) petechiae, no rashes or lesions. (unknown) (no (unknown) (unknown) She is no (units (unkn own) date) recurrence of unknown) pain. She was previously within normal limits. (unknown) (no (unknown) (unknown) Signed By: (units (unk nown) date) unknown) (unknown) (no (unknown) (unknown) Smoking Status: (units (unknown) date) Never smoker unknown) (unknown) (no (unknown) (unknown) Social History (units (unknown) date) (Reviewed 07/26/22 unknown) @ 05:19 by Xenia Wiggins DO) (unknown) (no (unknown) (unknown) Source: patient (units (unknown) date) unknown) (unknown) (no (unknown) (unknown) Stand Alone (units (un known) date) Forms: Patient unknown) Portal/API, Work Release Note (unknown) (no (unknown) (unknown) Stated Complaint: (units (unknown) date) ABD PAIN unknown) (unknown) (no (unknown) (unknown) Substance Use (units ( unknown) date) Type: does not use unknown) (unknown) (no (unknown) (unknown) Temperature 98.7 (units (unknown) date) F 07/26/22 04:20 unknown) (unknown) (no (unknown) (unknown) Temperature 98.7 (units (unknown) date) F unknown) (unknown) (no (unknown) (unknown) Time Seen by (units (u nknown) date) Provider: 07/26/22 unknown) 05:06 (unknown) (no (unknown) (unknown) Urinalysis and (units (unknown) date) are unknown) negative. Differential diagnosis includes ovarian (unknown) (no (unknown) (unknown) Urine Dip (units (unkn own) date) unknown) (unknown) (no (unknown) (unknown) Urine Specific (units (unknown) date) [place] 1.020 unknown) (unknown) (no (unknown) (unknown) Vital Signs - 8 (units (unknown) date) hr unknown) (unknown) (no (unknown) (unknown) Vital Signs (units (un known) date) unknown) (unknown) (no (unknown) (unknown) Vital signs: (units (u nknown) date) unknown) (unknown) (no (unknown) (unknown) abdominal pain (units (unknown) date) then please return unknown) to the emergency department (unknown) (no (unknown) (unknown) alcohol intake (units (unknown) date) frequency: a few unknown) times a month (unknown) (no (unknown) (unknown) and below (units (unkn own) date) unknown) (unknown) (no (unknown) (unknown) any chest pain no (units (unknown) date) cough no rash no unknown) other symptoms. (unknown) (no (unknown) (unknown) cyst rupture, (units ( unknown) date) ectopic , unknown) appendicitis. However I think all of these are (unknown) (no (unknown) (unknown) did not vomit. (units (unknown) date) She had a normal unknown) day yesterday and went to bed last night. No (unknown) (no (unknown) (unknown) guarding or (units (un known) date) rebound. unknown) (unknown) (no (unknown) (unknown) imaging needed. (units (unknown) date) unknown) (unknown) (no (unknown) (unknown) intact (units (unkno wn) date) unknown) (unknown) (no (unknown) (unknown) it lasted for 30 (units (unknown) date) minutes. During unknown) the time she felt nauseous and short of. She (unknown) (no (unknown) (unknown) lower abdominal (units (unknown) date) pain all across unknown) her lower abdomen. She took 600 mg of ibuprofen (unknown) (no (unknown) (unknown) membranes (units (unkn own) date) unknown) (unknown) (no (unknown) (unknown) overall (units (unkno wn) date) reassuring. unknown) However if you should have new worsening or persistent (unknown) (no (unknown) (unknown) patient and (units (un known) date) partner. At this unknown) time I feel that there is no further testing or (unknown) (no (unknown) (unknown) prior history of (units (unknown) date) ovarian cyst. Her unknown) pain is completely resolved now. She denies (unknown) (no (unknown) (unknown) relatively (units (unk nown) date) unlikely with how unknown) quickly symptoms resolved. I discussed this with (unknown) (no (unknown) (unknown) sudden onset of (units (unknown) date) severe abdominal unknown) pain lasting 30 minutes resolving with Motrin. (unknown) (no (unknown) (unknown) worsening or (units (u nknown) date) concerning unknown) symptoms Result panel 6 (unknown) (no (unknown) (unknown) (no value) (units (unk nown) date) unknown) (unknown) (no (unknown) (unknown) <Electronically (units (unknown) date) signed by Xenia Wiggins D.O.> (unknown) (no (unknown) (unknown) *Continue to take (units (unknown) date) medications as unknown) directed (unknown) (no (unknown) (unknown) *Follow up with (units (unknown) date) your primary care unknown) provider in 2-3 days or call [phone] (unknown) (no (unknown) (unknown) *Return to ER if (units (unknown) date) you should have unknown) increasing pain nausea vomiting or any new, (unknown) (no (unknown) (unknown) *What to do: At (units (unknown) date) this time unknown) abdominal pain that resolved within 30 minutes is (unknown) (no (unknown) (unknown) *You have been (units (unknown) date) diagnosed with unknown) abdominal pain (unknown) (no (unknown) (unknown) 07/26/22 0625 (units ( unknown) date) unknown) (unknown) (no (unknown) (unknown) 07/26/22 (units (unkno wn) date) unknown) (unknown) (no (unknown) (unknown) 04:20 07/26/22 (units (unknown) date) unknown) (unknown) (no (unknown) (unknown) 05:33 (units (unkno wn) date) unknown) (unknown) (no (unknown) (unknown) 72055 (units (unkno wn) date) unknown) (unknown) (no (unknown) (unknown) ABDOMEN: Soft, (units (unknown) date) nontender. unknown) Normoactive bowel sounds all 4 quadrants. No (unknown) (no (unknown) (unknown) Abdominal pain (units (unknown) date) unknown) (unknown) (no (unknown) (unknown) Activity (units (unkno wn) date) Restrictions/Addit unknown) ional Instructions: (unknown) (no (unknown) (unknown) Age/Sex: 22 / F (units (unknown) date) unknown) (unknown) (no (unknown) (unknown) Allergies (units (unkn own) date) unknown) (unknown) (no (unknown) (unknown) Allergy/AdvReac (units (unknown) date) Type Severity unknown) Reaction Status Date / Time (unknown) (no (unknown) (unknown) Bedside Urine (units ( unknown) date) Bilirubin - unknown) Negative (unknown) (no (unknown) (unknown) Bedside Urine (units ( unknown) date) Glucose Negative unknown) (unknown) (no (unknown) (unknown) Bedside Urine (units ( unknown) date) Ketone - Negative unknown) (unknown) (no (unknown) (unknown) Bedside Urine (units ( unknown) date) Leukocytes - unknown) Negative (unknown) (no (unknown) (unknown) Bedside Urine (units ( unknown) date) Nitrite - Negative unknown) (unknown) (no (unknown) (unknown) Bedside Urine (units ( unknown) date) Occult Blood unknown) (unknown) (no (unknown) (unknown) Bedside Urine (units ( unknown) date) Protein - Negative unknown) (unknown) (no (unknown) (unknown) Bedside Urine (units ( unknown) date) Urobilinogen - unknown) Negative (unknown) (no (unknown) (unknown) Bedside Urine pH (units (unknown) date) 6.0 unknown) (unknown) (no (unknown) (unknown) Blood Pressure (units (unknown) date) 121/77 07/26/22 unknown) 04:20 (unknown) (no (unknown) (unknown) Blood Pressure (units (unknown) date) 145/75 H unknown) (unknown) (no (unknown) (unknown) CARDIOVASCULAR: (units (unknown) date) Regular rate and unknown) rhythm without murmurs, rubs or gallops. (unknown) (no (unknown) (unknown) Chief Complaint: (units (unknown) date) Abdominal Pain unknown) (unknown) (no (unknown) (unknown) Clinical (units (unkno wn) date) Impression: unknown) (unknown) (no (unknown) (unknown) Course (units (unkno wn) date) unknown) (unknown) (no (unknown) (unknown) : 2000 (units (unknown) date) Acct:[id number] unknown) (unknown) (no (unknown) (unknown) Date of Service: (units (unknown) date) 07/26/22 unknown) (unknown) (no (unknown) (unknown) Departure (units (unkn own) date) unknown) (unknown) (no (unknown) (unknown) Discharge Plan (units (unknown) date) unknown) (unknown) (no (unknown) (unknown) ER Physician: (units ( unknown) date) Xenia Wiggins unknown) D.O. (unknown) (no (unknown) (unknown) EXTREMITIES: (units (u nknown) date) Normal range of unknown) motion, no clubbing or edema. Neurovascularly (unknown) (no (unknown) (unknown) Emergency Report (units (unknown) date) unknown) (unknown) (no (unknown) (unknown) Esterase (units (unkno wn) date) unknown) (unknown) (no (unknown) (unknown) Exam (units (unkno wn) date) unknown) (unknown) (no (unknown) (unknown) GENERAL: Alert (units (unknown) date) well-appearing unknown) 22-year-old female and in no acute distress. (unknown) (no (unknown) (unknown) General (units (unkno wn) date) unknown) (unknown) (no (unknown) (unknown) HEENT: Head (units (un known) date) atraumatic,EOMI, unknown) pupils reactive, face symmetric, moist mucous (unknown) (no (unknown) (unknown) HPI - Abdominal (units (unknown) date) Pain unknown) (unknown) (no (unknown) (unknown) HPI narrative: (units (unknown) date) unknown) (unknown) (no (unknown) (unknown) History of (units (unk nown) date) Present Illness unknown) (unknown) (no (unknown) (unknown) Initial Vital (units ( unknown) date) Signs unknown) (unknown) (no (unknown) (unknown) Initial Vital (units ( unknown) date) Signs: unknown) (unknown) (no (unknown) (unknown) Instructions: DI (units (unknown) date) for Abdominal unknown) Pain-Adult (unknown) (no (unknown) (unknown) [facility] (units (unknown) date) [address] [place] [address] unknown) [place] [address] (unknown) (no (unknown) (unknown) Lab Data (units (unkno wn) date) unknown) (unknown) (no (unknown) (unknown) MDM - Abdominal (units (unknown) date) Pain unknown) (unknown) (no (unknown) (unknown) MDM Narrative (units ( unknown) date) unknown) (unknown) (no (unknown) (unknown) Medical decision (units (unknown) date) making narrative: unknown) (unknown) (no (unknown) (unknown) Mode of arrival: (units (unknown) date) Ambulatory unknown) (unknown) (no (unknown) (unknown) NEUROLOGICAL: (units ( unknown) date) Alert and oriented unknown) x4. (unknown) (no (unknown) (unknown) No Known Drug (units ( unknown) date) Allergies Allergy unknown) Verified 07/26/22 04:35 (unknown) (no (unknown) (unknown) Oxygen Delivery (units (unknown) date) Method 07/26/22 unknown) 04:20 (unknown) (no (unknown) (unknown) Oxygen Delivery (units (unknown) date) Method Room Air unknown) Room Air (unknown) (no (unknown) (unknown) Patient (units (unkno wn) date) Disposition: Home unknown) (unknown) (no (unknown) (unknown) Patient History (units (unknown) date) unknown) (unknown) (no (unknown) (unknown) Patient is a (units (u nknown) date) healthy unknown) 22-year-old female who woke up at 2:45 a.m. within can (unknown) (no (unknown) (unknown) Patient is a (units (u nknown) date) healthy unknown) well-appearing 22-year-old female presenting today with (unknown) (no (unknown) (unknown) Patient: (units (unkno wn) date) Bianca Forrest MR#: unknown) [id number] (unknown) (no (unknown) (unknown) Point of Care (units ( unknown) date) Testing unknown) (unknown) (no (unknown) (unknown) Point of care (units ( unknown) date) testing: unknown) (unknown) (no (unknown) (unknown) Test (units (unknown) date) Results Negative unknown) (unknown) (no (unknown) (unknown) Provider,Marci (units (unknown) date) SHELLY [Primary Care unknown) Provider] (unknown) (no (unknown) (unknown) Pulse Oximetry (units (unknown) date) 100 07/26/22 04:20 unknown) (unknown) (no (unknown) (unknown) Pulse Oximetry (units (unknown) date) 100 98 unknown) (unknown) (no (unknown) (unknown) Pulse Rate 68 (units ( unknown) date) 07/26/22 04:20 unknown) (unknown) (no (unknown) (unknown) Pulse Rate 68 76 (units (unknown) date) unknown) (unknown) (no (unknown) (unknown) RESPIRATORY: (units (u nknown) date) Breath sounds unknown) equal bilaterally, no wheezes rales or rhonchi. (unknown) (no (unknown) (unknown) ROS Unobtainable: (units (unknown) date) All systems unknown) reviewed + are unremarkable except as noted in HPI (unknown) (no (unknown) (unknown) Referrals: (units (unk nown) date) unknown) (unknown) (no (unknown) (unknown) Related Data (units (u nknown) date) unknown) (unknown) (no (unknown) (unknown) Respiratory Rate (units (unknown) date) 18 07/26/22 04:20 unknown) (unknown) (no (unknown) (unknown) Respiratory Rate (units (unknown) date) 18 18 unknown) (unknown) (no (unknown) (unknown) Review of Systems (units (unknown) date) unknown) (unknown) (no (unknown) (unknown) SKIN: Warm, dry, (units (unknown) date) no laceration, no unknown) petechiae, no rashes or lesions. (unknown) (no (unknown) (unknown) She is no (units (unkn own) date) recurrence of unknown) pain. She was previously within normal limits. (unknown) (no (unknown) (unknown) Signed By: (units (unk nown) date) unknown) (unknown) (no (unknown) (unknown) Smoking Status: (units (unknown) date) Never smoker unknown) (unknown) (no (unknown) (unknown) Social History (units (unknown) date) (Reviewed 07/26/22 unknown) @ 05:19 by Xenia Wiggins DO) (unknown) (no (unknown) (unknown) Source: patient (units (unknown) date) unknown) (unknown) (no (unknown) (unknown) Stand Alone (units (un known) date) Forms: Patient unknown) Portal/API, Work Release Note (unknown) (no (unknown) (unknown) Stated Complaint: (units (unknown) date) ABD PAIN unknown) (unknown) (no (unknown) (unknown) Substance Use (units ( unknown) date) Type: does not use unknown) (unknown) (no (unknown) (unknown) Temperature 98.7 (units (unknown) date) F 07/26/22 04:20 unknown) (unknown) (no (unknown) (unknown) Temperature 98.7 (units (unknown) date) F unknown) (unknown) (no (unknown) (unknown) Time Seen by (units (u nknown) date) Provider: 07/26/22 unknown) 05:06 (unknown) (no (unknown) (unknown) Urinalysis and (units (unknown) date) are unknown) negative. Differential diagnosis includes ovarian (unknown) (no (unknown) (unknown) Urine Dip (units (unkn own) date) unknown) (unknown) (no (unknown) (unknown) Urine Specific (units (unknown) date) [place] 1.020 unknown) (unknown) (no (unknown) (unknown) Vital Signs - 8 (units (unknown) date) hr unknown) (unknown) (no (unknown) (unknown) Vital Signs (units (un known) date) unknown) (unknown) (no (unknown) (unknown) Vital signs: (units (u nknown) date) unknown) (unknown) (no (unknown) (unknown) abdominal pain (units (unknown) date) then please return unknown) to the emergency department (unknown) (no (unknown) (unknown) alcohol intake (units (unknown) date) frequency: a few unknown) times a month (unknown) (no (unknown) (unknown) and below (units (unkn own) date) unknown) (unknown) (no (unknown) (unknown) any chest pain no (units (unknown) date) cough no rash no unknown) other symptoms. (unknown) (no (unknown) (unknown) cyst rupture, (units ( unknown) date) ectopic , unknown) appendicitis. However I think all of these are (unknown) (no (unknown) (unknown) did not vomit. (units (unknown) date) She had a normal unknown) day yesterday and went to bed last night. No (unknown) (no (unknown) (unknown) guarding or (units (un known) date) rebound. unknown) (unknown) (no (unknown) (unknown) imaging needed. (units (unknown) date) unknown) (unknown) (no (unknown) (unknown) intact (units (unkno wn) date) unknown) (unknown) (no (unknown) (unknown) it lasted for 30 (units (unknown) date) minutes. During unknown) the time she felt nauseous and short of. She (unknown) (no (unknown) (unknown) lower abdominal (units (unknown) date) pain all across unknown) her lower abdomen. She took 600 mg of ibuprofen (unknown) (no (unknown) (unknown) membranes (units (unkn own) date) unknown) (unknown) (no (unknown) (unknown) overall (units (unkno wn) date) reassuring. unknown) However if you should have new worsening or persistent (unknown) (no (unknown) (unknown) patient and (units (un known) date) partner. At this unknown) time I feel that there is no further testing or (unknown) (no (unknown) (unknown) prior history of (units (unknown) date) ovarian cyst. Her unknown) pain is completely resolved now. She denies (unknown) (no (unknown) (unknown) relatively (units (unk nown) date) unlikely with how unknown) quickly symptoms resolved. I discussed this with (unknown) (no (unknown) (unknown) sudden onset of (units (unknown) date) severe abdominal unknown) pain lasting 30 minutes resolving with Motrin. (unknown) (no (unknown) (unknown) worsening or (units (u nknown) date) concerning unknown) symptoms Social History date description facility 2022-07-26 00:00 Never smoked tobacco ([facility] Vital Signs date measurement value units 2022-07-26 00:00 BP_diastolic 75 mmHg 2022-07-26 00:00 BP_systolic 145 mmHg 2022-07-26 00:00 heart_rate 76 /min 2022-07-26 00:00 o2_saturation 98 % 2022-07-26 00:00 respiration_rate 18 /min 2022-07-26 00:00 temperature_metric 37.06 C 2022-07-26 00:00 temperature_standard 98.7 F 2022-07-26 00:00 weight_metric 86.18 kg 2022-07-26 00:00 weight_standard 189.99 lb
[2022-08-16] MEDS ORDERED: KETOROLAC 15 MG/ML VIAL IVP STA (17:38)
--- NOTE | 2022-08-16 17:42 | CT Report ---
PROCEDURE: ABDOMEN/PELVIS W INDICATIONS: IV only, low abd pain CONTRAST: 100mL Omni 300 TECHNIQUE: After the administration of IV contrast, 5 mm thick sections acquired from the diaphragms to the symp hysis. 5 mm thick coronal and sagittal reformats were acquired. For radiation dose reduction, the f ollowing was used: automated exposure control, adjustment of mA and/or kV according to patient size. COMPARISON: None FINDINGS: Image quality: Good Lower chest: The distal esophagus is patulous, with some fluid, nonspecific appearance. Lung bases ar e unremarkable. Solid organs: Suspected focal fat adjacent to falciform ligament. Liver is otherwise unremarkable. Ga llbladder is underdistended. No pathologic dilation of the biliary tree or pancreatic duct. No spleno megaly. No adrenal nodules. No hydronephrosis. Vessels and lymph nodes: The main portal vein is patent. No abdominal aortic aneurysm. No pathologic adenopathy by size criteria. Bowel and peritoneum: Esophagus findings as above. No evidence of small bowel obstruction. Small amou nt pelvic free fluid may be physiologic. Normal appendix. Body wall: Unremarkable. Pelvis: Vaginal device. Unremarkable limited CT evaluation of the reproductive organs. Bladder is unr emarkable. Bones: No acute or suspicious osseous abnormality. IMPRESSION: No acute intra-abdominal pathology. Small amount of fluid, as well as patulous appearance of the dist al esophagus can be associated with reflux. Consider fluoroscopic and/or endoscopic evaluation if nec essary. Other findings as above. Reviewed by: Brian Mcintyre MD on 08/16/2022 5:40 PM PST Approved by: Brian Mcintyre MD on 08/16/2022 5:40 PM PST Station ID: [id number]
[2022-08-16] MEDS ORDERED: iohexoL-300 100 ML VIAL IVP ONE (17:50)
[2022-08-16 19:41] VITALS: BP 113/81
[2022-08-17 05:25] LABS: CHLAMYDIA TRACHOMATIS DNA NEGATIVE (NEGATIVE); NEISSERIA GONORRHOEAE DNA NEGATIVE (NEGATIVE); TRICHOMONAS VAGINALIS DNA NEGATIVE (NEGATIVE)
== END 2022-08-16 19:40 | disposition home or self-care (01) ==
LOC: ED 15:43
DX: R10.30 Lower abdominal pain, unspecified (principal)
CPT/HCPCS: 36415; 74177; 80053; 81001; 81025; 83690; 85025; 87491; 87591; 87661; 96374; 99284; Q9967; 81003; 87086

== ENCOUNTER 2022-10-08 18:12 | Emergency (ER) | payer OTHER ==
[2022-10-08 18:20] VITALS: BP 138/89
--- NOTE | 2022-10-08 18:35 | ED Physician Documentation ---
History of Present Illness - Stated complaint Stated Complaint: ABD PX - Chief complaint Chief Complaint: Abd Pain - Additonal information Additional information: 22-year-old female presents emergency department for evaluation of left lower quadrant abdominal/pelvic pain and lack of the menstrual cycle for 2 months. Patient had previously been on Depo-Provera but stopped taking it in May 2022. She reports that she had an irregular menstrual cycle in July of this year but none since. Since then she has had lower abdominal cramping and fullness. Feels like she is going to start a menstrual cycle but never does. She denies any vaginal discharge. Was seen in this emergency department in July for lower abdominal pain cramping. CT at that time was negative. STD testing was negative as well. Last sexually active in July. Reports that she had a negative test 2 weeks ago. Review of Systems Constitutional: denies: Fever, Chills GI: reports: Abdominal Pain, Reviewed and negative : reports: Missed period, Other (No menstrual cycle since July 2022) Skin: reports: Reviewed and negative PD PAST MEDICAL HISTORY - Past Surgical History Past Surgical History: Yes HEENT: Tonsil/Adenoidectomy - Present Medications Home Medications: Ambulatory Orders Medication Instructions Recorded Confirmed Dextroamphetamine/Amphetamine 20 mg PO DAILY 08/16/22 08/16/22 [Adderall 20 mg Tablet] HYDROcod/ACETAM 5/325 [[place] 5/325] 1 - 2 tab PO Q6H PRN #15 tablet 08/16/22 Ondansetron Odt [Zofran] 4 mg TL Q6H PRN #10 tablet 08/16/22 - Allergies Allergies/Adverse Reactions: Allergies Allergy/AdvReac Type Severity Reaction Status Date / Time No Known Drug Allergies Allergy Verified 10/08/22 18:16 - Social History Does the pt smoke?: No Smoking Status: Never smoker Does the pt drink ETOH?: Yes Does the pt have substance abuse?: No - Immunizations Immunizations are current?: Yes PD ED PE NORMAL - General General: Alert and oriented X 3, No acute distress - Cardiac Cardiac: RRR - Respiratory Respiratory: No respiratory distress, Clear bilaterally - Abdomen Abdomen: Normal bowel sounds, Soft. No: Non tender (Unable to elicit any tenderness of the abdomen or pelvis with light or deep palpation. No percussion tenderness.) - Back Back: No CVA TTP - Derm Derm: Normal color, Warm and dry, No rash - Extremities Extremities: No deformity - Neuro Neuro: Alert and oriented X 3 Results - Vitals Vitals: Vital Signs - 24 hr 10/08/22 10/08/22 18:16 18:20 Temperature 36.5 C 36.5 C Heart Rate 86 86 Respiratory 16 16 Rate Blood Pressure 138/89 H 138/89 H O2 Saturation 99 99 Oxygen O2 Source Room air - Labs Labs: Laboratory Tests 10/08/22 18:36 Urine Color YELLOW Urine Clarity CLEAR Urine pH 6.0 Ur Specific [place] 1.025 Urine Protein NEGATIVE Urine Glucose (UA) NEGATIVE Urine Ketones NEGATIVE Urine Occult Blood TRACE-INTA Urine Nitrite NEGATIVE Urine Bilirubin NEGATIVE Urine Urobilinogen 0.2 (NORMAL) Ur Leukocyte Esterase NEGATIVE Ur Microscopic Review NOT INDICATED Urine Culture Comments NOT INDICATED Urine HCG, Qual NEGATIVE PD Medical Decision Making - ED course Complexity details: reviewed results, re-evaluated patient, considered differential, d/w patient ED course: 22-year-old female presents emergency department for evaluation of left lower pelvic pain. This has been ongoing for a number of months. She has not had a menstrual cycle since mid July. She is previously on Depo-Provera for control but stopped in May 2022. Seen in this ER and later July had an unremarkable CT scan. At that time STI testing was negative. On exam today the patient appears rather well. I was unable to elicit any abdominal tenderness. Her urinalysis per my interpretation showed no signs of infections. Patient is not . I did offer a pelvic ultrasound to evaluate for the possibility of fibroids or ovarian cyst that may be contributing to her lack of menstrual cycle but when patient was informed that the wait time would likely be 2 to 3 hours for imaging she declined to wait and requested discharge home. She states that she is satisfied knowing she is not positive. I encouraged her to follow closely [facility] for longer-term evaluation of what appears to now be your regular menstrual cycles. Departure - Departure Disposition: Home, Self Care Clinical Impression: Irregular periods/menstrual cycles Condition: Stable Comments: As we discussed at the bedside your urinalysis today shows no signs of infection. You are not . We did offer a pelvic ultrasound to evaluate for possible causes of the irregular menstrual cycle to include uterine fibroids or ovarian cysts. However you have declined to wait for imaging here in the ER. At this time it is okay for you to follow closely with [facility]. I would recommend a pelvic ultrasound as an outpatient. Return to the ER if you have worsening symptoms, fevers uncontrolled vomiting or severe abdominal pain.
[2022-10-08 18:41] LABS: BILIRUBIN,URINE NEGATIVE (NEGATIVE); GLUCOSE, URINE (UA) NEGATIVE (NEGATIVE); KETONES,URINE (UA) NEGATIVE (NEGATIVE); LEUKOCYTE ESTERASE, URINE NEGATIVE (NEGATIVE); NITRITE,URINE NEGATIVE (NEGATIVE); OCCULT BLOOD,URINE TRACE-INTA (NEGATIVE); PROTEIN,URINE NEGATIVE (NEGATIVE); UROBILINOGEN,URINE 0.2 (NORMAL) E.U./dL (NORMAL)
[2022-10-08 18:44] LABS: CLARITY,URINE CLEAR (CLEAR); HCG UR QUAL NEGATIVE
--- OUTSIDE RECORDS SUMMARY | 2022-10-08 18:48 | EXTERNAL MEDICAL SUMMARY RPT | Continuity of Care Document ---
:2000 Author Organization [facility] Address [address] [place] [address] Phone Care Team Providers Name Role Phone Xenia Wiggins Unavailable Unavailable Allergies and Intolerances date description facility type (no date) No Known Drug Allergies [facility] (unkn own) Encounters No information. Functional Status No information. Immunizations No information. Medications No information. Problems date description facility 2022-07-26 00:00 Abdominal pain [facility] Procedures No information. Results/Labs test date author facility value unit interpret ation Result panel 1 (unknown) (no (unknown) (unknown) (no value) (units (unk nown) date) unknown) (unknown) (no (unknown) (unknown) 07/26/22 (units (unkno wn) date) unknown) (unknown) (no (unknown) (unknown) 04:20 (units (unkno wn) date) unknown) (unknown) (no (unknown) (unknown) 25058 (units (unkno wn) date) unknown) (unknown) (no [...] (unknown) (unknown) : 2000 (units (unknown) date) Acct:[id number] unknown) (unknown) (no (unknown) (unknown) Date of [...] date) Signs: unknown) (unknown) (no (unknown) (unknown) [facility] (units (unknown) date) [address] unknown) [place] [address] (unknown) (no (unknown) (unknown) Lab Data (units [...] (unknown) (unknown) Urine Specific (units (unknown) date) [place] 1.020 unknown) (unknown) (no (unknown) (unknown) Vital [...] wn) date) unknown) (unknown) (no (unknown) (unknown) [address] (units (unkno wn) date) unknown) (unknown) (no [...] (unknown) (unknown) : 2000 (units (unknown) date) Acct:[id number] unknown) (unknown) (no (unknown) (unknown) Date of [...] date) Signs: unknown) (unknown) (no (unknown) (unknown) [facility] (units (unknown) date) [address] unknown) [place] [address] (unknown) (no (unknown) (unknown) Lab Data (units [...] (unknown) (unknown) Urine Specific (units (unknown) date) [place] 1.020 unknown) (unknown) (no (unknown) (unknown) Vital [...] care provider in 2-3 days or call [phone] (unknown) (no (unknown) (unknown) *Return to ER [...] wn) date) unknown) (unknown) (no (unknown) (unknown) [address]61 (units (unkno wn) date) unknown) (unknown) (no [...] (unknown) (unknown) : 2000 (units (unknown) date) Acct:[id number] unknown) (unknown) (no (unknown) (unknown) Date of [...] Abdominal unknown) Pain-Adult (unknown) (no (unknown) (unknown) [facility] (units (unknown) date) [address] [place] [address] Street unknown) [place] [address] (unknown) (no (unknown) (unknown) Lab Data (units [...] (unknown) (unknown) Urine Specific (units (unknown) date) [place] 1.020 unknown) (unknown) (no (unknown) (unknown) Vital [...] unknown) provider in 2-3 days or call [phone] (unknown) (no (unknown) (unknown) *Return to ER [...] wn) date) unknown) (unknown) (no (unknown) (unknown) [address]1960 (units (unkno wn) date) unknown) (unknown) (no [...] (unknown) (unknown) : 2000 (units (unknown) date) Acct:[id number] unknown) (unknown) (no (unknown) (unknown) Date of [...] Abdominal unknown) Pain-Adult (unknown) (no (unknown) (unknown) [facility] (units (unknown) date) [address] unknown) [place] [address] (unknown) (no (unknown) (unknown) Lab Data (units [...] (unknown) (unknown) Urine Specific (units (unknown) date) [place] 1.020 unknown) (unknown) (no (unknown) (unknown) Vital [...] unknown) provider in 2-3 days or call [phone] (unknown) (no (unknown) (unknown) *Return to ER [...] wn) date) unknown) (unknown) (no (unknown) (unknown) [address] (units (unkno wn) date) unknown) (unknown) (no [...] (unknown) (unknown) : 2000 (units (unknown) date) Acct:[id number] unknown) (unknown) (no (unknown) (unknown) Date of [...] Abdominal unknown) Pain-Adult (unknown) (no (unknown) (unknown) [facility] (units (unknown) date) [address] unknown) [place] [address] (unknown) (no (unknown) (unknown) Lab Data (units [...] (unknown) (unknown) Urine Specific (units (unknown) date) [place] 1.020 unknown) (unknown) (no (unknown) (unknown) Vital [...] <Electronically (units (unknown) date) signed by Xenia unknownMoi Wiggins D.O.> (unknown) (no (unknown) (unknown) *Continue to take (units (unknown) date) medications as unknown) directed (unknown) (no (unknown) (unknown) *Follow up with (units (unknown) date) your primary care unknown) provider in 2-3 days or call [phone] (unknown) (no (unknown) (unknown) *Return to ER [...] wn) date) unknown) (unknown) (no (unknown) (unknown) [address] (units (unkno wn) date) unknown) (unknown) (no [...] (unknown) (unknown) : 2000 (units (unknown) date) Acct:[id number] unknown) (unknown) (no (unknown) (unknown) Date of [...] Abdominal unknown) Pain-Adult (unknown) (no (unknown) (unknown) [facility] (units (unknown) date) [address] [place] [address] unknown) [place] [address] (unknown) (no (unknown) (unknown) Lab Data (units [...] (unknown) (unknown) Urine Specific (units (unknown) date) [place] 1.020 unknown) (unknown) (no (unknown) (unknown) Vital [...] description facility 2022-07-26 00:00 Never smoked tobacco ([facility] Vital Signs date measurement value units 2022-07-26 00:00 BP_diastolic 75 mmHg 2022-07-26 00:00 BP_systolic 145 mmHg 2022-07-26 00:00 heart_rate 76 /min 2022-07-26 00:00 o2_saturation 98 % 2022-07-26 00:00 respiration_rate 18 /min 2022-07-26 00:00 temperature_metric 37.06 C 2022-07-26 00:00 temperature_standard 98.7 F 2022-07-26 00:00 weight_metric 86.18 kg 2022-07-26 00:00 weight_standard 189.99 lb
== END 2022-10-08 19:28 | disposition home or self-care (01) ==
LOC: ED 18:12
DX: N92.6 Irregular menstruation, unspecified (principal)
CPT/HCPCS: 81001; 81003; 81025; 87086; 99283; 99284